=== PATIENT | male | born 1945 | race Caucasian/White ===

== ENCOUNTER → 2016-09-17 | Outpatient (CLI) | payer OTHER, MEDICARE ==
[2016-09-17 09:45] LABS: BILIRUBIN,TOTAL 0.9 mg/dL (0.3-1.2); BUN/CREATININE RATIO 27.14 (6-20); CALCIUM 9.5 mg/dL (8.7-10.7); CREATININE 0.7 mg/dL (0.70-1.50); LDL CHOLESTEROL,CALCULATED 86.2 mg/dL; POTASSIUM 3.8 meq/L (3.8-5.2)
== END ==
LOC: LAB 08:59
PROVIDERS: ATTEND Nurse Practitioner Family
DX: E78.2 Mixed hyperlipidemia (principal); I10 Essential (primary) hypertension; N40.0 Benign prostatic hyperplasia without lower urinary tract symptoms; Z12.5 Encounter for screening for malignant neoplasm of prostate
CPT/HCPCS: 36415; 80048; 82247; 82465; 82550; 82977; 83718; 84075; 84450; 84460; 84478; G0103

== ENCOUNTER → 2016-09-22 | Outpatient (CLI) | payer OTHER, MEDICARE | LOC: MMPC 11:11 | PROVIDERS: ATTEND Nurse Practitioner Family | DX: E78.5 Hyperlipidemia, unspecified (principal); I10 Essential (primary) hypertension; E03.9 Hypothyroidism, unspecified | CPT/HCPCS: 99214; G0463 ==

== ENCOUNTER → 2016-11-04 | Outpatient (CLI) | payer OTHER, MEDICARE ==
[2016-11-04 16:24] LABS: HEMOGLOBIN A1C 5.17 % (4.2-6.0); MEAN BLOOD GLUCOSE (CALC) 86.161 mg/dL
[2016-11-04 16:39] LABS: FREE T4 (FREE THYROXINE) 1.7 ng/dL (0.93-1.71)
[2016-11-07 10:11] LABS: A/G RATIO 0.91 (()); ALB PEP SER 3.8 g/dL (3.4-4.7); ALP1 GLOB 0.2 g/dL (0.1-0.3); ALP2 GLOB 0.9 g/dL (0.6-1.0); BETA GLOBS 1.1 g/dL (0.7-1.2); GAMMA GLOBS 1.9 g/dL (0.6-1.6); M SPIKE 1.1 g/dL (()); TOT PRT SERUM 7.9 g/dL (6.3 - 7.9)
[2016-11-07 10:43] LABS: IMPRESSION SEE COMMENTS (())
== END ==
LOC: MOB LAB 13:57
PROVIDERS: ATTEND Nurse Practitioner Family
DX: E03.9 Hypothyroidism, unspecified (principal); I10 Essential (primary) hypertension; G60.9 Hereditary and idiopathic neuropathy, unspecified; Z83.3 Family history of diabetes mellitus; Z79.899 Other long term (current) drug therapy
CPT/HCPCS: 36415; 82607; 82746; 83036; 84155; 84165; 84439; 84443; 85652; 86334

== ENCOUNTER → 2016-11-17 | Outpatient (CLI) | payer OTHER, MEDICARE ==
[2016-11-19 08:56] LABS: 24 HOUR URINE VOLUME 1875 mL (()); ALBUMIN 24PE 32 % (()); ALPHA1 GLOB 5 % (()); ALPHA2 GLOB 20 % (()); BETA GLOB URINE 33 % (()); COLLECTION DURATION 24 h (())
== END ==
LOC: LAB 09:37
PROVIDERS: ATTEND Nurse Practitioner Family
DX: D47.2 Monoclonal gammopathy (principal)
CPT/HCPCS: 84156; 84166

== ENCOUNTER → 2017-03-19 | Outpatient (CLI) | payer OTHER, MEDICARE ==
[2017-03-19 09:36] LABS: BUN/CREATININE RATIO 27.14 (6-20); CALCIUM 8.7 mg/dL (8.7-10.7); CHOL/HDL RATIO 6.21 RATIO (0-4.0); LDL CHOLESTEROL,CALCULATED 81.2 mg/dL
== END ==
LOC: LAB 08:51
PROVIDERS: ATTEND Nurse Practitioner Family
DX: E78.5 Hyperlipidemia, unspecified (principal); I10 Essential (primary) hypertension; E03.9 Hypothyroidism, unspecified
CPT/HCPCS: 36415; 80048; 82247; 82465; 82550; 82977; 83718; 84075; 84443; 84450; 84460; 84478

== ENCOUNTER → 2017-03-23 | Outpatient (CLI) | payer OTHER, MEDICARE | LOC: MMPC 09:00 | PROVIDERS: ATTEND Nurse Practitioner Family | DX: I10 Essential (primary) hypertension (principal); E78.5 Hyperlipidemia, unspecified; E03.9 Hypothyroidism, unspecified; R97.20 Elevated prostate specific antigen [PSA]; G60.9 Hereditary and idiopathic neuropathy, unspecified | CPT/HCPCS: 99214; G0463 ==

== ENCOUNTER 2018-05-10 10:22 | Inpatient (IN) ==
[~2018-05-10 10:22] MED LIST: BUPivacaine Liposome/PF (Exparel) Inj 20ml vial INFIL ONE; Ketorolac Inj 30 MG, Morphine Inj (Ortho Cocktail) 5 MG, BUPivacaine Inj 0.25% PF 150 MG SPLASH ONE; LIDOCAINE W/ SODIUM BICARB 0.5 ML SYR ONE; LIDOCAINE W/ SODIUM BICARB 0.5 ML SYR SUBD ONE; Lactated Ringers 1,000 ML PRIMARY IV ONE; Nasal Sanitizer POPSWAB ampule 3 AMP (Nozin) PREOP DOSE ENOS SCH; Sodium Chloride 0.9% 100 ML IV ONE; TRANEXAMIC ACID 1,000 MG / 10 ML VIAL ONE; Tranexamic Acid 1,000 MG in Sodium Chloride 0.9% 100 ML IV SCH; ceFAZolin Inj 2gm (Premix) 2 GM/50 ML BAG IV ONE
[2018-05-10 10:51] LABS: BILIRUBIN,URINE NEGATIVE (NEG); CLARITY,URINE CLEAR (CLEAR); COLOR,URINE YELLOW (Y); GLUCOSE, URINE (UA) NEGATIVE (NEG); OCCULT BLOOD,URINE MODERATE (NEG); PROTEIN,URINE NEGATIVE (NEG); UROBILINOGEN,URINE 0.2 EU/dL (0.2)
[2018-05-10] MEDS ORDERED: ceFAZolin Inj 2gm (Premix) 2 GM/50 ML BAG IV ONE (10:51)
[2018-05-10 10:57] LABS: URINE SAMPLE TYPE CLEAN CATCH URINE
[2018-05-10 10:58] LABS: BACTERIA,URINE RARE; SQUAMOUS EPITHELIAL CELL,UR RARE; WBC,URINE 0-1
[2018-05-10] MEDS: Lactated Ringers 1,000 ML PRIMARY IV SCH (11:21)
[2018-05-10] MEDS ORDERED: Sodium Chloride 0.9% 250 ML IV ONE (11:48)
[2018-05-10] MEDS ORDERED: Sodium Chloride 0.9% 0 ML ONE (11:48)
[2018-05-10] MEDS ORDERED: fentaNYL Inj 250 MCG/5 ML VIAL ONE (12:10)
[2018-05-10] MEDS ORDERED: MIDAZOLAM 5 MG/1 ML ONE (12:10)
[2018-05-10] MEDS ORDERED: LIDOCAINE 2%/ EPI 1:200,000 - 20 ML VIAL ONE (12:12)
[2018-05-10] MEDS ORDERED: BUPIVACAINE 0.5% W/ EPI - 10 ML VIAL ONE (12:12)
[2018-05-10] MEDS ORDERED: Sodium Chloride 0.9% vial 40 ML ONE (12:22)
[2018-05-10] MEDS ORDERED: BUPivacaine Liposome/PF (Exparel) Inj 20ml vial INFIL ONE (12:22)
--- NOTE | 2018-05-10 12:35 | CRNA.PROCE ---
Nerve Block Documentation - - Safety Measures: Time Out Taken, Site Verified - - Type of Nerve Block Used: Left Adductor Canal Nerve Block Position for Nerve Block: Supine Moniters Used During Block: EKG, SPO2, NIBP Oxygen Supplemented: Yes Sedation Used - Enter Amount in Comment Field [ANES.SEDAT]: Midazolam (mg): Yes (2mg iv), Fentanyl (mcg): Yes (50mcg iv) Skin Prep Used: ChloroPrep Technique: Ultrasound Nerve Block Needle Used: EchoBright 100 mm Local Anesthetic - Enter Amt in Comment Field [ANES.LOCNB]: 0.5 % Bupivicaine with Epinephrine 1:200,000 (mL): Yes (20ml), 2 % Xylocaine with Epinephrine 1: 200,000 (mL): Yes (20ml) - - PreOp Block : Time In: 12:20 PreOp Block : Time Out: 12:30 Anesthesia Time - Other Weight: 110.042 kg Height: 5 ft 8 in Body Mass Index (BMI): 36.8
[2018-05-10] MEDS ORDERED: PROPOFOL 10 MG/1 ML (200 MG/20 ML) VIAL IV ONE (12:57)
[2018-05-10] MEDS ORDERED: KETAMINE 100 MG/1 ML - 5 ML ONE (13:35)
[2018-05-10] MEDS ORDERED: Lactated Ringers 1,000 ML PRIMARY IV ONE ×3 (14:03→15:38)
--- NOTE | 2018-05-10 15:39 | OPS CRUTCH ---
Diagnosis : Left Total Knee Arthroplasty Referral Reason: IceMan Cold Therapy Unit O: The patient was issued an [facility]Man Cold Therapy Unit and instructed in its proper use and care. P: No further therapy is indicated at this time. MTDD
[2018-05-10] MEDS ORDERED: ONDANSETRON 4 MG/2 ML VIAL IVP PRN (17:26)
[2018-05-10] MEDS ORDERED: HYDROmorphone 2 MG/1 ML IVP PRN (17:26)
[2018-05-10] MEDS ORDERED: LIDOCAINE W/ SODIUM BICARB 0.5 ML SYR SUBD PRN (17:26)
[2018-05-10] MEDS ORDERED: fentaNYL Inj 100 MCG/2 ML VIAL IVP PRN (17:26)
--- NOTE | 2018-05-10 17:29 | CRNA.PROGR ---
Anesthesia Time - Procedure/Recovery Time Start Date: 05/10/18 End Date: 05/10/18 Anesthesia : Time In: 12:53 Anesthesia : Time Out: 17:15 Anesthesia : Total Time: 262 - Block Time PreOp Block : Time In: 12:20 PreOp Block : Time Out: 12:30 - Total Anesthesia Time Total Anesthesia Time (minutes): 262 - Other Weight: 110.042 kg Height: 5 ft 8 in Body Mass Index (BMI): 36.8 Physical Status: P2 Anesthesia Type: General Anesthesia : LMA
--- NOTE | 2018-05-10 17:29 | CRNA.PROGR ---
Anesthesia Recovery Phase I - Post Anesthesia Evaluation Patient's Condition on Arrival in Phase I: Stable Pain Level: 0
[2018-05-10] MEDS ORDERED: Lactated Ringers 1,000 ML PRIMARY IV SCH (17:30)
--- NOTE | 2018-05-10 18:06 | DI ---
LEFT KNEE, 05/10/2018 5:15 PM: Clinical History: Status post total knee replacement. Osteoarthritis. Previous Exam: 02/09/2018. AP and lateral views are submitted. The patient is status post total left knee replacement. The prost hetic joint articulates normally. A drain tube is in place. Reading: Status post total left knee replacement. The prosthetic joint articulates normally.
[2018-05-10] MEDS ORDERED: MAG HYDROX/AL HYDROX/SIMETH 30 ML SUSP PO PRN (18:20)
[2018-05-10] MEDS ORDERED: CALCIUM CARBONATE 500 MG (TUMS) CHEWABLE TABLET PO PRN (18:20)
[2018-05-10] MEDS ORDERED: Ondansetron ODT Tab 8 MG TAB PO PRN (18:20)
[2018-05-10] MEDS ORDERED: BISACODYL 10 MG SUPPOSITORY RECTAL PRN (18:20)
[2018-05-10] MEDS ORDERED: MORPHINE SULFATE 2 MG/1 ML IVP PRN (18:20)
[2018-05-10] MEDS ORDERED: Prochlorperazine Tab 10 MG TAB PO PRN (18:20)
[2018-05-10] MEDS ORDERED: BISACODYL 5 MG TABLET PO PRN (18:20)
[2018-05-10] MEDS ORDERED: diphenhydrAMINE 25 MG CAPSULE PO PRN (18:20)
[2018-05-10] MEDS ORDERED: ACETAMINOPHEN 325 MG TABLET PO PRN (18:20)
[2018-05-10] MEDS ORDERED: IBUPROFEN 400 MG TABLET PO PRN (18:20)
[2018-05-10] MEDS: oxyCODONE/APAP 7.5/325 Tab 1 TAB TAB PO PRN ×2 (19:17→23:20)
[2018-05-10] MEDS: D5-1/2NS + 20mEq KCL 1,000 ML PRIMARY IV SCH (19:17)
[2018-05-10] MEDS ORDERED: LISINOPRIL 20 MG TABLET PO SCH (21:00)
[2018-05-10] MEDS: Pravastatin Tab 40 MG TAB PO SCH (22:00)
[2018-05-10] MEDS: TAMSULOSIN 0.4 MG CAPSULE PO SCH (22:00)
[2018-05-10] MEDS: DOCUSATE 100 MG CAPSULE PO SCH (22:00)
[2018-05-10] MEDS: POTASSIUM CHLORIDE 20 MEQ TAB PO SCH (22:00)
[2018-05-10] MEDS: ceFAZolin Inj 2gm (Premix) 2 GM/50 ML BAG IV SCH (22:00)
--- NOTE | 2018-05-10 22:00 | PDOC ---
HPI - History of Present Illness Date of Service: 05/10/18 Time of Service: 21:55 Chief Complaint: Left knee pain History of Present Illness: This very pleasant 72-year-old male that has had left knee pain for some time. 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 He has bilateral knee pain, left greater than right, and opted for a left knee replacement with Dr. Fleming. That surgery was done today. Please see his surgical notes regarding the procedure. I was asked to assess and address his hypertension, hypothyroidism, benign prostatic hypertrophy and to advise on those medical issues. Postoperatively, the patient denies any chest pain, shortness breath, nausea or vomiting. He states that he is on some blood pressure medications, a thyroid pill, but has never had any heart attack or stroke history. He states his knee pain is well controlled postsurgery as well. The patient states that he will be doing a replacement on the right knee in the future. He states his only issue at this time is that he feels like he has some fullness in his bladder, and that he typically has symptoms of urinary urgency. He states that is much better on Flomax. Past Medical History Medical History: 1. Hypertension. 2. Hypothyroidism. 3. Benign prostatic hypertrophy, patient states that he had workup that showed negative workup for prostate cancer. 4. Bilateral knee osteoarthritis. 5. Hypercholesterolemia Surgical History: 1. Cholecystectomy. 2. Right knee cartilage surgery. 3. Colonoscopy with history of colon polyps. He follows Dr. Hernandez for this. Pertinent Family History: Brother had colon cancer and of complications of multiple sclerosis Past Social History: Does not smoke or drink alcohol. . Has one healthy daughter. Lives here in [place], [place]. Tobacco Use: Never Smoker In the Past 12 Months, Have Used or Abuse Any of the Following Substance: None Alcohol Use: None Medication / Allergies Home Medications: Home Medications 3 Medication Instructions Recorded Confirmed Type Cranberry Fruit Concentrate 1 cap PO QD cap 03/29/15 05/10/18 History [Cranberry] aspirin 81 mg tablet,delayed PO 09/24/17 05/06/18 History release amlodipine 5 mg tablet 5 mg PO QDAY #30 tab 01/21/18 05/10/18 Rx levothyroxine 137 mcg tablet 137 mcg PO DAILY #90 tab 01/21/18 05/10/18 Rx lisinopril 40 mg tablet 40 mg PO BID #180 tab 01/21/18 05/10/18 Rx gabapentin 300 mg capsule 300 mg PO TID #90 cap 03/12/18 05/10/18 Rx pravastatin 40 mg tablet 40 mg PO QHS #90 tab 04/05/18 05/10/18 Rx potassium chloride ER 20 mEq 20 meq PO BID #60 tab 05/07/18 05/10/18 Rx tablet,extended release Tamsulosin HCl 0.4 mg PO ONCE 05/10/18 05/10/18 History Allergies/Adverse Reactions: Allergies 3 Allergy/AdvReac Type Severity Reaction Status Date / Time No Known Allergies Allergy Unverified 04/27/18 09:34 Exam - Vitals Vital Signs: Vital Signs Temperature 97.6 F Temperature Source Temporal Artery Scan Pulse Rate [Pulse Oximeter] 78 Pulse Rate 68 Respiratory Rate 18 Blood Pressure [Right Arm] 123/73 Blood Pressure 137/65 Pulse Ox 95 Oxygen Flow Rate 2 Oxygen Delivery Method Nasal Cannula Height 5 ft 8 in Weight 242 lb - General General Appearance: No Acute Distress, Cooperative - Head Head Exam: Normal Inspection, Normocephalic, Atraumatic - Eye Eye Exam: POSITIVE: No Scleral Icterus - ENT ENT Exam: POSITIVE: Mucous Membranes Moist - Neck Neck Exam: Normal Inspection, No Tenderness, No Lymphadenopathy, No Thyromegaly , JVP is not Raised - Respiratory Respiratory Exam: POSITIVE: Clear to Auscultation - Bilaterally, Breathing Non Labored - Cardiovascular Cardiovascular Exam: POSITIVE: RRR, No Murmur, No Clicks, No Gallops, No Rubs, No JVD - GI/Abdominal GI/Abdominal Exam: POSITIVE: Normal Bowel Sounds, Non Tender, Non Distended, Soft - Rectal Rectal Exam: POSITIVE: Deferred - External Exam: POSITIVE: Deferred Exam: POSITIVE: Deferred - Extremities Extremities Exam: POSITIVE: No Clubbing Present, No Edema Present, No Cyanosis Present Additional Extremities Exam Details: Left knee is currently bandaged, dressed, and dressing appears clean and dry and intact - Neurological Neurological Exam: POSITIVE: Alert, Oriented x 3, No Facial Droop, Speech Intact / Clear - Psychiatric Psychiatric Exam: POSITIVE: Normal Affect, Normal Mood Results - Labs CBC and BMP: 05/10/18 11:21 Additional Lab Results: 12/13/12 04/26/18 04/26/18 08:22 09:03 09:03 WBC 5.45 Hgb 16.1 RDW 13.9 Plt Count 209 PT 10.9 INR 1.06 Sodium Potassium Chloride Carbon Dioxide Anion Gap BUN Creatinine BUN/Creatinine Ratio Glucose Calculated Osmolality AST ALT Alkaline Phosphatase Total Protein Albumin Globulin Albumin/Globulin Ratio Urine Occult Blood 04/26/18 05/10/18 05/10/18 09:03 10:43 11:21 WBC Hgb RDW Plt Count PT INR Sodium 138 Potassium 4.1 Chloride 104 Carbon Dioxide 27 Anion Gap 7 BUN 21 Creatinine 0.7 BUN/Creatinine Ratio 30.00 H Glucose 102 Calculated Osmolality 288.0 AST 21 ALT 39 Alkaline Phosphatase 64 Total Protein 7.9 Albumin 4.1 Globulin 3.8 Albumin/Globulin Ratio 1.00 L Urine Occult Blood Moderate H - EKG Data -: EKG Interpreted by Me (From 04/26/2018) Rate: Normal EKG Shows Normal: Sinus Rhythm - EKG Data EKG Interpretation: Normal EKG - Imaging Status: Report Reviewed by Me (The postoperative knee x-ray shows postoperative changes of knee replacement with knee replacement joint articulating correctly.) Assessment and Plan - Patient Problems (1) Essential hypertension Current Visit: Yes Status: Acute (2) Hypothyroidism Current Visit: Yes Status: Acute Code(s): E03.9 - Hypothyroidism, unspecified (3) Hyperlipidemia Current Visit: Yes Status: Chronic Qualifiers: Hyperlipidemia type: mixed hyperlipidemia Qualified Code(s): E78.2 - Mixed hyperlipidemia (4) Osteoarthritis of knees, bilateral Current Visit: Yes Status: Acute Code(s): M17.0 - Bilateral primary osteoarthritis of knee Qualifiers: Osteoarthritis type: primary Qualified Code(s): M17.0 - Bilateral primary osteoarthritis of knee (5) Status post left knee replacement Current Visit: Yes Status: Acute Code(s): Z96.652 - Presence of left artificial knee joint (6) Benign prostatic hyperplasia Current Visit: No Status: None Qualifiers: Lower urinary tract symptom presence: symptoms present Lower urinary tract symptom detail: urinary frequency Qualified Code(s): N40.1 - Benign prostatic hyperplasia with lower urinary tract symptoms; R35.0 - Frequency of micturition - Assessment / Plan Additional Assessment/Plan Details: I would recommend resuming Synthroid, antihypertensive agents including amlodipine, but hold off on SHANTAL inhibitor of lisinopril due to associations with perioperative hypotension and renal insufficiency. I will take the liberty of discontinuing that medication now. We can resume that down the road if blood pressure stabilized and become more hypertensive during the hospital stay. Go ahead and continue D5 half normal with potassium for now, and if patient is doing much better from fluid balance standpoint tomorrow, I think we can saline lock the IV tomorrow. In terms of the catheter, he is having a little bit of pressure from that, so we 'll try to insert of the little further, make sure it's not taper lock, and use Urojet to try and relieve any discomfort or pain. He will continue on his Flomax for his benign prostatic hypertrophy. Labs in a.m. DVT prophylaxis for 10-14 days postoperatively would be recommended with either Lovenox or Xarelto.. PT and OT as per orthopedics. Take for this consult. It'll be the hospitalist services pleasure to continue to advise on these medical issues throughout the hospital stay.
[2018-05-11] MEDS: Lactated Ringers 1,000 ML PRIMARY IV SCH (00:24)
[2018-05-11] MEDS: oxyCODONE/APAP 7.5/325 Tab 1 TAB TAB PO PRN ×5 (03:11→20:25)
[2018-05-11] MEDS: D5-1/2NS + 20mEq KCL 1,000 ML PRIMARY IV SCH ×2 (04:04→15:51)
[2018-05-11] MEDS: ceFAZolin Inj 2gm (Premix) 2 GM/50 ML BAG IV SCH (05:00)
[2018-05-11 05:01] LABS: Hemoglobin [HGB] 14.2 g/dL (14.0-18.0); MEAN CORPUSCULAR HEMOGLOBIN 29.2 PG (27-31); MEAN CORPUSCULAR VOLUME 88.3 FL (80-90); RED BLOOD COUNT 4.87 10^6/uL (4.70-6.10)
[2018-05-11 05:11] LABS: BLOOD UREA NITROGEN 20 mg/dL (7-22)
[2018-05-11] MEDS ORDERED: MORPHINE SULFATE 10 MG/1 ML IVP ONE (08:52)
[2018-05-11] MEDS ORDERED: ENOXAPARIN SODIUM 40 MG/0.4 ML SYRINGE SUBCUT SCH (09:00)
[2018-05-11] MEDS: DOCUSATE 100 MG CAPSULE PO SCH ×2 (09:21→20:26)
[2018-05-11] MEDS: POTASSIUM CHLORIDE 20 MEQ TAB PO SCH ×2 (09:21→20:24)
[2018-05-11] MEDS: LEVOTHYROXINE 137 MCG TABLET PO SCH (09:22)
[2018-05-11] MEDS: AmLODIPine Tab 5 MG TABLET PO SCH (09:22)
[2018-05-11] MEDS: Rivaroxaban Tab 10 MG TAB PO SCH (09:22)
[2018-05-11] MEDS: GABAPENTIN 300 MG CAPSULE PO SCH ×3 (09:22→20:25)
--- NOTE | 2018-05-11 09:30 | ORTHO.PROG ---
Last Taken Vital Signs: Vital Signs - Last Taken Temperature 97.8 F 05/11/18 06:45 Pulse Rate 60 05/11/18 07:00 Respiratory Rate 18 05/11/18 07:00 Blood Pressure 137/68 05/11/18 06:45 Pulse Ox 94 05/11/18 06:45 Subjective: Patient had just been transferred to chair. Rates his pain 7 out of 10. Was only about 5 through the night. Did not sleep very well. Objective: Vital signs stable patient afebrile. Hemoglobin 14 proximally 300+ cc of blood out of his drain. Left knee incision clean with mild drainage. Not much effusion in the knee. Slight contracture to the knee. The femoral block seems to have worn off. He has normal sensation on the anterior thigh. Postoperative x-rays show satisfactory position of the prosthesis. Assessment: Impression doing fairly postop day 1 from left total knee. Plan: Plan: Is to DC his drain Hemovac which I did. We'll get his Redmond catheter out later today. We'll start him on Xarelto 10 mg daily. DC the order for the ibuprofen and the Lovenox. CPM was ordered. We will initiate that. I applied RACHEL hose to his leg. We'll get going in physical therapy today. will alternate percocet with the morphine.
[2018-05-11] MEDS: ONDANSETRON 4 MG/2 ML VIAL IVP PRN (09:33)
--- NOTE | 2018-05-11 12:50 | PTI REPORT ---
Thank you for the referral of Teodoro Mckeon. He was seen on 05/11/18 for an inpatient evaluation status post total knee arthroplasty. SUBJECTIVE: The patient is a 72-year-old male who underwent a total knee procedure yesterday. He was seen this morning in his room. PAST MEDICAL HISTORY: Past medical history can be found in the patient's medical record. OBJECTIVE FINDINGS: Pain: The patient rates his pain at a 7/10 on the verbal analog scale. Bed mobility: The patient required minimal assist of one to come from supine to sit. He was having quite a bit of discomfort and pain down the lateral side of his leg. Transfers: The patient required assist of one to transfer from sit to stand with use of a walker. Ambulation: The patient ambulated approximately 6-7 steps and got into a autumn chair. Range of motion: The patient demonstrated range of motion to approximately 80 degrees of knee flexion. ASSESSMENT: Problem List: Pain in the affected knee Decreased passive and active range of motion in the affected knee Decreased strength in the affected knee Short-Term Goals: To be met by discharge from inpatient: Patient will be able to transfer from bed to stand independently. Patient will be able to ambulate 100 feet with walker, weight-bearing as tolerated Patient will be able to ascend and descend five stairs with walker, weight- bearing as tolerated. Long-Term Goals: To be met following discharge from inpatient: Patient will be seen by outpatient therapy. TREATMENT PLAN: Patient will be seen B.I.D during the week and one time per day over the weekend as an inpatient for transfers, ambulatory activities, range of motion, and the start of his total knee rehab. INITIAL TREATMENT: Treatment today consisted of the initial evaluation activities. The patient transferred to the autumn chair and was issued a cryocuff for his knee. There is a CPM in his room; we are awaiting written orders. BEN
--- NOTE | 2018-05-11 16:19 | PT.PROG ---
Progress Note Progress Note: S. Patient stated that he is still in a lot of pain this afternoon, however agreed to go for a walk. O. Patient transferred from seated to standing then ambulated 70 feet in the bryan and back to his bed where he was fitted for the CPM and was left in CPM with call light. A. Patient tolerated ambulation well this afternoon, he was unable to tolerate 70 degrees of flexion on the CPM, however was able to tolerate 65 degrees at this time. Patient would continue to benefit from skilled therapy to increase strength and mobility at this time. P. Continue POC.
--- NOTE | 2018-05-11 16:20 | PDOC(PROG) ---
Date of Service: 05/11/18 Time of Service: 16:15 Interval History: No completes of chest pain, shortness of breath, or current nausea and vomiting. Had some nausea and vomiting with morphine earlier today but that seems to have resolved at this point. I spoke with his RN. Noted change and DVT prophylaxis agent, but Xarelto is a good choice as well. I would recommend an additional 9-13 days from here. Doing well with therapy. Objective : Data - Labs CBC and BMP: 05/11/18 04:05 05/11/18 04:05 Objective : Exam - General General Appearance: No Acute Distress, Cooperative Additional General Exam Details: Vital Signs - Last Taken Temperature 98 F 05/11/18 11:08 Pulse Rate 74 05/11/18 11:08 Respiratory Rate 18 05/11/18 11:08 Blood Pressure 150/73 05/11/18 11:08 Pulse Ox 90 05/11/18 11:08 - Head Head Exam: Normal Inspection, Normocephalic - ENT ENT Exam: Mucous Membranes Moist - Respiratory Respiratory Exam: Clear to Auscultation - Bilaterally, Breathing Non Labored Additional Respiratory Exam Details: Did very well with incentive spirometry while I was examining the patient at bedside. - Cardiovascular Cardiovascular Exam: RRR, No Murmur, No Clicks, No Gallops, No Rubs, No JVD - GI/Abdominal GI/Abdominal Exam: Normal Bowel Sounds, Non Tender, Non Distended, Soft - Extremities Extremities Exam: No Clubbing Present, No Edema Present, No Cyanosis Present Additional Extremities Exam Details: Right knee is dressed. Dressing is clean, dry, intact. - Neurological Neurological Exam: Alert, Oriented x 3, No Facial Droop, Speech Intact / Clear Assessment and Plan - Patient Problems (1) Essential hypertension Current Visit: Yes Status: Acute (2) Hypothyroidism Current Visit: Yes Status: Acute Code(s): E03.9 - Hypothyroidism, unspecified Qualifiers: Hypothyroidism type: unspecified Qualified Code(s): E03.9 - Hypothyroidism , unspecified (3) Hyperlipidemia Current Visit: Yes Status: Chronic Qualifiers: Hyperlipidemia type: mixed hyperlipidemia Qualified Code(s): E78.2 - Mixed hyperlipidemia (4) Osteoarthritis of knees, bilateral Current Visit: Yes Status: Acute Code(s): M17.0 - Bilateral primary osteoarthritis of knee Qualifiers: Osteoarthritis type: primary Qualified Code(s): M17.0 - Bilateral primary osteoarthritis of knee (5) Benign prostatic hyperplasia Current Visit: No Status: None Qualifiers: Lower urinary tract symptom presence: symptoms present Lower urinary tract symptom detail: urinary frequency Qualified Code(s): N40.1 - Benign prostatic hyperplasia with lower urinary tract symptoms; R35.0 - Frequency of micturition (6) Status post left knee replacement Current Visit: Yes Status: Acute Code(s): Z96.652 - Presence of left artificial knee joint - Assessment / Plan Additional Assessment/Plan Details: Patient is doing well thus far postoperatively with physical therapy and occupational therapy, continue that. DVT prophylaxis with Xarelto is very reasonable. I would agree with that. Pain control as per orthopedics. No adjustments to antihypertensive therapy today. Blood pressures noted. No change to the thyroid medications or to cholesterol medications at this point.
[2018-05-11] MEDS ORDERED: Prochlorperazine Edisylate Inj 10mg/2ml vial IVP PRN (18:38)
[2018-05-11] MEDS: TAMSULOSIN 0.4 MG CAPSULE PO SCH (20:25)
[2018-05-11] MEDS: Pravastatin Tab 40 MG TAB PO SCH (20:26)
[2018-05-12] MEDS: oxyCODONE/APAP 7.5/325 Tab 1 TAB TAB PO PRN ×6 (00:54→23:44)
[2018-05-12 04:30] LABS: Hematocrit [HCT] 42.4 % (42.0-52.0); MEAN CORPUSCULAR HEMOGLOBIN 29.7 PG (27-31); MEAN CORPUSCULAR VOLUME 89.8 FL (80-90); MEAN PLATELET VOLUME 9.6 FL (7.4-12.2); RED BLOOD COUNT 4.72 10^6/uL (4.70-6.10)
[2018-05-12 04:43] LABS: BLOOD UREA NITROGEN 20 mg/dL (7-22)
--- NOTE | 2018-05-12 08:32 | ORTHO.PROG ---
Last Taken Vital Signs: Vital Signs - Last Taken Temperature 99.4 F 05/12/18 07:25 Pulse Rate 100 05/12/18 07:25 Respiratory Rate 22 05/12/18 07:25 Blood Pressure 160/62 05/12/18 07:25 Pulse Ox 95 05/12/18 07:25 Subjective: Patient looks better today. Fairly sleepy through the night but he did not sleep at all the night before. Little bit of nausea yesterday evening. States his pain is well-controlled with Percocet only. Did fairly well in therapy yesterday. Objective: Vital signs stable, temperature 99. Left knee incision clean and dry. Minimal swelling. Knee seems more extended and yesterday. Hemoglobin 14 Assessment: Impression: Doing quite well postop day 2 from left total knee. Plan: Lang: Is to continue physical therapy. The Percocet alone seems to be working. Possible discharge tomorrow depending on his progress.
[2018-05-12] MEDS: GABAPENTIN 300 MG CAPSULE PO SCH ×2 (09:23→20:02)
[2018-05-12] MEDS: LEVOTHYROXINE 137 MCG TABLET PO SCH (09:23)
[2018-05-12] MEDS: POTASSIUM CHLORIDE 20 MEQ TAB PO SCH ×2 (09:23→20:02)
[2018-05-12] MEDS: DOCUSATE 100 MG CAPSULE PO SCH ×2 (09:23→20:03)
[2018-05-12] MEDS: AmLODIPine Tab 5 MG TABLET PO SCH (09:24)
[2018-05-12] MEDS: Rivaroxaban Tab 10 MG TAB PO SCH (09:24)
--- NOTE | 2018-05-12 15:22 | PDOC(PROG) ---
Date of Service: 05/12/18 Time of Service: 15:16 Interval History: no chest pain, no shortness of breath. no nausea or vomiting today. had vomiting yesterday, but resolved now. knee pain controlled and therapy went well. Objective : Data - Labs CBC and BMP: 05/12/18 04:15 05/12/18 04:15 Objective : Exam - General General Appearance: No Acute Distress, Cooperative Additional General Exam Details: Vital Signs - Last Taken Temperature 97.9 F 05/12/18 11:47 Pulse Rate 86 05/12/18 11:47 Respiratory Rate 20 05/12/18 11:47 Blood Pressure 110/54 05/12/18 11:47 Pulse Ox 85 05/12/18 11:47 - Eye Eye Exam: No Scleral Icterus - ENT ENT Exam: Mucous Membranes Moist - Respiratory Respiratory Exam: Clear to Auscultation - Bilaterally, Breathing Non Labored - Cardiovascular Cardiovascular Exam: RRR, No Murmur, No Clicks, No Gallops, No Rubs, No JVD - GI/Abdominal GI/Abdominal Exam: Normal Bowel Sounds, Non Tender, Non Distended, Soft - Extremities Extremities Exam: No Clubbing Present, No Edema Present, No Cyanosis Present Additional Extremities Exam Details: left knee dressed, clean and dry dressing. - Neurological Neurological Exam: Alert, Oriented x 3, No Facial Droop, Speech Intact / Clear Assessment and Plan - Patient Problems (1) Essential hypertension Current Visit: Yes Status: Acute (2) Hypothyroidism Current Visit: Yes Status: Acute Code(s): E03.9 - Hypothyroidism, unspecified Qualifiers: Hypothyroidism type: unspecified Qualified Code(s): E03.9 - Hypothyroidism , unspecified (3) Hyperlipidemia Current Visit: Yes Status: Chronic Qualifiers: Hyperlipidemia type: mixed hyperlipidemia Qualified Code(s): E78.2 - Mixed hyperlipidemia (4) Osteoarthritis of knees, bilateral Current Visit: Yes Status: Acute Code(s): M17.0 - Bilateral primary osteoarthritis of knee Qualifiers: Osteoarthritis type: primary Qualified Code(s): M17.0 - Bilateral primary osteoarthritis of knee (5) Benign prostatic hyperplasia Current Visit: No Status: None Qualifiers: Lower urinary tract symptom presence: symptoms present Lower urinary tract symptom detail: urinary frequency Qualified Code(s): N40.1 - Benign prostatic hyperplasia with lower urinary tract symptoms; R35.0 - Frequency of micturition (6) Status post left knee replacement Current Visit: Yes Status: Acute Code(s): Z96.652 - Presence of left artificial knee joint - Assessment / Plan Additional Assessment/Plan Details: blood pressured noted, fairly well controlled, no changes to meds continue thyroid replacement. PT and OT continue DVT prophylaxis would be good to discharge from my perspective when cleared from ortho. noted to be hypoxic at night, probably has sleep apnea. suspects that. outpatient follow up arranged and primary provider can order sleep study.
--- NOTE | 2018-05-12 15:36 | OTI REPORT ---
Thank you for the referral of Teodoro Mckeon. He was seen on 05/12/18 for an occupational therapy inpatient evaluation status post left total knee arthroplasty. SUBJECTIVE: The patient is a 72-year-old male. He reports that he lives in a one level home with his and has one stair to get into the home. Prior to admission, the patient was having a little bit of trouble with his socks as both knees are bad. The patient will need to have his right knee replaced sometime later this year. Prior to admission the patient was getting in and out of and around his home decently. Nursing reports that the patient has had some oxygen difficulties and that his oxygen levels were dropping into the 60s when sleeping last night. The patient reports that he has a shower chair as well as a higher toilet in his bathroom. PAST MEDICAL HISTORY: Past medical history can be found in the patient's medical record. OBJECTIVE FINDINGS: General observations: The patient was on 4 liters of oxygen when the therapist arrived. We were able to get him down to 2 liters with oxygen saturation levels staying above 90% throughout the session today. Activities of daily living: The patient was able to use the splash line operator to don and doff his socks as well as the sock aide to don his socks. The patient was issued a shoe horn a splash line operator and a sock aide. ASSESSMENT: The patient would benefit from at least one more skilled session to go over ADLs and functional abilities with use of adaptive devices. The patient did need some safety cues with use of the walker. The patient tends to get a little bit ahead of himself and rushes through the ambulation. We did tell him to take more time, to walk into the walker, and to move the walker first before ambulating into the walker. There were some balance concerns today with this patient. Short-Term Goals: To be met by discharge from inpatient: Patient will be able to dress self with modified independence. Patient will be able to complete all functional transfers independently. Patient will be able to complete toileting and showering activities independently. Long-Term Goals: To be met following discharge from inpatient: Patient will be discharged to home demonstrating independence and safety with all functional transfers and ADLs. TREATMENT PLAN: Patient will be seen B.I.D during the week and one time per day over the weekend as an inpatient to address the above goals and objectives. INITIAL TREATMENT: Treatment today consisted of the initial evaluation activities only. BEN
--- NOTE | 2018-05-12 16:32 | PT.PROG ---
Progress Note Progress Note: S. Patient stated that he is having a lot of pain this morning, he agreed to go to the therapy gym however. O. Patient was wheeled to the therapy gym where he performed, heel slides, quad , sets, ankle pumps and short arc quads, sit to stands all x 10, Patient then ambulated 80 feet to the wheelchair and was returned to his room where he was left in his chair with alarm and call light. A. Patient tolerated therapy fair this morning, he continues to struggle with pain and continues to lack full extension at this time. P. Continue POC.
--- NOTE | 2018-05-12 16:49 | PT.PROG ---
Progress Note Progress Note: S.Patient stated that he is having a lot of pain this afternoon. O. Patient was wheeled to the therapy gym where he performed, heel slides, quad , sets, ankle pumps and short arc quads, seated long arc quads, marches, knee flexion (3x30 seconds) sit to stands all x 10, Patient then ambulated 80 feet to the wheelchair and was returned to his room where he was left in his chair with alarm and call light. A. Patient tolerated therapy fair this afternoon, he continues to struggle with pain and continues to lack full extension at this time he was able to achieve 75 degrees of flexion. P. Continue POC.
[2018-05-12] MEDS: TAMSULOSIN 0.4 MG CAPSULE PO SCH (20:02)
[2018-05-12] MEDS: Pravastatin Tab 40 MG TAB PO SCH (20:02)
[2018-05-13] MEDS: oxyCODONE/APAP 7.5/325 Tab 1 TAB TAB PO PRN ×5 (04:10→21:58)
[2018-05-13] MEDS: LEVOTHYROXINE 137 MCG TABLET PO SCH (08:47)
[2018-05-13] MEDS: DOCUSATE 100 MG CAPSULE PO SCH ×2 (08:47→21:58)
[2018-05-13] MEDS: Rivaroxaban Tab 10 MG TAB PO SCH (08:47)
[2018-05-13] MEDS: POTASSIUM CHLORIDE 20 MEQ TAB PO SCH ×2 (08:47→21:58)
[2018-05-13] MEDS: AmLODIPine Tab 5 MG TABLET PO SCH (08:47)
[2018-05-13] MEDS: GABAPENTIN 300 MG CAPSULE PO SCH ×2 (11:01→21:57)
--- NOTE | 2018-05-13 12:00 | PT.PROG ---
Progress Note Progress Note: S. Patient stated that he is feeling better this morning compared to yesterday. O. Patient ambulated 50 feet to the wheelchair and was wheeled to the therapy gym with standard walker. Patient then had heat to the back of his knee and performed, heel slides, quad sets, ankle pumps, short arc quads, seated marches , flexion (2x30 second holds) then performed sit to stands x 10 and ambulated 80 feet back to the wheelchair and was returned to his room where he was left with alarm and call light. A. Patient was able to tolerate therapy well this morning, he continues to struggle with pain however was able to achieve 80 degrees of flexion and 7 degrees of extension, Patient would continue to benefit from skilled therapy to increase strength, mobility, safety and endurance at this time. P. Continue POC
--- NOTE | 2018-05-13 13:44 | OT.PROG ---
Progress Note Progress Note: S: pt stated he was having difficulties lifting his surgical leg today. O: tx consisted of functional ambulation x15 with stander walker and CGA for safety, toileting task independently, education and demonstration of use of sock aide and boy's adviser where pt performed LE dressing independently with 2 VCs for equipment placement. pt needed MAX A to tie shoe laces. A: pt was able to dress self and compete ADL tasks independently. pt is d/c from OT services due to reaching all OT goals. P: d/c from OT services
--- NOTE | 2018-05-13 17:18 | PT.PROG ---
Progress Note Progress Note: S. Patient stated that he is feeling good this afternoon, he reports he still has some soreness however feeling better. O. Patient ambulated 175 feet to the wheelchair and was wheeled to the therapy gym with standard walker. Patient then had heat to the back of his knee and performed, heel slides, quad sets, ankle pumps, short arc quads, seated marches , flexion (2x30 second holds) then performed sit to stands x 10 and ambulated 80 feet back to the wheelchair and was returned to his room where he was left with alarm and call light. A. Patient was able to tolerate therapy well this afternoon, he continues to struggle with pain however was able to achieve 85 degrees of flexion and 7 degrees of extension, Patient would continue to benefit from skilled therapy to increase strength, mobility, safety and endurance at this time. P. Continue POC
--- NOTE | 2018-05-13 17:21 | ORTHO.PROG ---
Last Taken Vital Signs: Vital Signs - Last Taken Temperature 98 F 05/13/18 17:00 Pulse Rate 65 05/13/18 17:00 Respiratory Rate 20 05/13/18 17:00 Blood Pressure 120/63 05/13/18 17:00 Pulse Ox 97 05/13/18 17:00 Subjective: Saw the patient this morning just before breakfast. He was looking good. Pain is well-controlled on one Percocet every 4 hours. Got a little behind yesterday. Having less nausea. Objective: Vital signs are stable patient afebrile. Left knee incision clean and dry. Normal swelling. I was able to flex his knee to about 85 degrees. Assessment: Impression: Doing well postop day 3 from left total knee. Plan: Plan is to do both therapy sessions today. Probably let him go home in the morning.
[2018-05-13] MEDS ORDERED: Fleet Enema w/Mineral Oil 133ml RECTAL PRN (19:24)
--- NOTE | 2018-05-13 19:35 | PDOC(PROG) ---
Date of Service: 05/13/18 Time of Service: 19:26 Interval History: complains of not having a bowel movement. no chest pain, no shortness of breath. no nausea or vomiting. knee pain controlled. Objective : Data - Labs CBC and BMP: 05/12/18 04:15 05/12/18 04:15 Objective : Exam - General General Appearance: No Acute Distress, Cooperative Additional General Exam Details: Vital Signs - Last Taken Temperature 98 F 05/13/18 17:00 Pulse Rate 65 05/13/18 17:00 Respiratory Rate 20 05/13/18 17:00 Blood Pressure 120/63 05/13/18 17:00 Pulse Ox 97 05/13/18 17:00 - Eye Eye Exam: No Scleral Icterus - ENT ENT Exam: Mucous Membranes Moist - Respiratory Respiratory Exam: Clear to Auscultation - Bilaterally, Breathing Non Labored - Cardiovascular Cardiovascular Exam: RRR, No Murmur, No Clicks, No Gallops, No Rubs, No JVD - GI/Abdominal GI/Abdominal Exam: Normal Bowel Sounds, Non Tender, Non Distended, Soft - Extremities Extremities Exam: No Clubbing Present, No Edema Present, No Cyanosis Present Additional Extremities Exam Details: left knee with dressing applied. dry dressing - Neurological Neurological Exam: Alert, Oriented x 3, No Facial Droop, Speech Intact / Clear Assessment and Plan - Patient Problems (1) Essential hypertension Current Visit: Yes Status: Acute (2) Hypothyroidism Current Visit: Yes Status: Acute Code(s): E03.9 - Hypothyroidism, unspecified Qualifiers: Hypothyroidism type: unspecified Qualified Code(s): E03.9 - Hypothyroidism , unspecified (3) Hyperlipidemia Current Visit: Yes Status: Chronic Qualifiers: Hyperlipidemia type: mixed hyperlipidemia Qualified Code(s): E78.2 - Mixed hyperlipidemia (4) Osteoarthritis of knees, bilateral Current Visit: Yes Status: Acute Code(s): M17.0 - Bilateral primary osteoarthritis of knee Qualifiers: Osteoarthritis type: primary Qualified Code(s): M17.0 - Bilateral primary osteoarthritis of knee (5) Benign prostatic hyperplasia Current Visit: No Status: None Qualifiers: Lower urinary tract symptom presence: symptoms present Lower urinary tract symptom detail: urinary frequency Qualified Code(s): N40.1 - Benign prostatic hyperplasia with lower urinary tract symptoms; R35.0 - Frequency of micturition (6) Status post left knee replacement Current Visit: Yes Status: Acute Code(s): Z96.652 - Presence of left artificial knee joint - Assessment / Plan Additional Assessment/Plan Details: we talked about using an enema, but patient wants to see if constipation meds work overnight no change to antihypertensive therapy from a medical stand point, when cleawred by ortho, okay to discharge. Primary care follow up arranged.
[2018-05-13] MEDS: TAMSULOSIN 0.4 MG CAPSULE PO SCH (21:58)
[2018-05-13] MEDS: Pravastatin Tab 40 MG TAB PO SCH (21:58)
[2018-05-13] MEDS ORDERED: MAGNESIUM CITRATE 296 ML SOLUTION PO ONE (22:37)
[2018-05-14] MEDS: oxyCODONE/APAP 7.5/325 Tab 1 TAB TAB PO PRN ×2 (01:54→08:14)
[2018-05-14] MEDS: ONDANSETRON 4 MG/2 ML VIAL IVP PRN (03:08)
[2018-05-14 07:45] VITALS: BP 123/74; RESP 16; TEMP 97; O2SAT 94
[2018-05-14] MEDS: DOCUSATE 100 MG CAPSULE PO SCH (08:15)
[2018-05-14] MEDS: AmLODIPine Tab 5 MG TABLET PO SCH (08:15)
[2018-05-14] MEDS: POTASSIUM CHLORIDE 20 MEQ TAB PO SCH (08:15)
[2018-05-14] MEDS: LEVOTHYROXINE 137 MCG TABLET PO SCH (08:15)
[2018-05-14] MEDS: Rivaroxaban Tab 10 MG TAB PO SCH (08:16)
[2018-05-14] MEDS: GABAPENTIN 300 MG CAPSULE PO SCH (08:16)
--- NOTE | 2018-05-14 08:20 | ORTHO.PROG ---
Last Taken Vital Signs: Vital Signs - Last Taken Temperature 97 F 05/14/18 07:44 Pulse Rate 80 05/14/18 07:44 Respiratory Rate 16 05/14/18 07:44 Blood Pressure 123/74 05/14/18 07:44 Pulse Ox 94 05/14/18 07:44 Subjective: Patient sitting up eating breakfast. Not complaining of much pain. Only took 5 pain pills yesterday. Bent his knee to about 85 yesterday. Objective: Vital signs stable patient afebrile. Left knee with minimal effusion Able to slide her leg back and forth. I will check his motion after he finishes his breakfast. Assessment: Impression: Doing well postop day 4 from left total knee. Plan: Plan: Is to discharge him this morning. He'll begin outpatient therapy on Thursday. He will be sent home with a CPM machine. Also stable with Percocet and also Xarelto for an additional week.
--- NOTE | 2018-05-14 11:41 | PT.PROG ---
Progress Note Progress Note: S. Patient stated that he is feeling better today, he reports he feels that he is ready to go home. O. Patient ambulated 175 feet to the therapy gym where he had heat to the back of his knee then performed heel slides, quad sets, ankle pumps, short arc quads , straight leg raises, seated marches, long arc quads, heel toe raises sit to stands all x 10, patient used the nu-step x 10 minutes then was stretched and ascended and descended 2 stairs and ambulated 175 feet back to his room where he was left in his chair with alarm and call light. A. Patient tolerated therapy well this morning, he was able to complete all exercises with no increase in pain or problems. Patient would benefit from outpatient therapy at this time. Patient has met all therapy goals at this time. P. Patient is cleared from therapy at this time.
== END 2018-05-14 12:21 | disposition home or self-care (01) | DRG 470 ==
LOC: OPS 10:22 → MED/SURG 17:45
PROVIDERS: ADMIT Orthopaedic Surgery; ATTEND Orthopaedic Surgery

== ENCOUNTER 2018-08-17 08:00 | Inpatient (IN) ==
[2018-09-07] MEDS ORDERED: LIDOCAINE W/ SODIUM BICARB 0.5 ML SYR SUBD PRN ×2 (06:00→14:25)
[2018-09-07] MEDS ORDERED: ceFAZolin Inj 2gm (Premix) 2 GM/50 ML BAG IV ONE ×2 (06:00→08:56)
[2018-09-07] MEDS ORDERED: Ketorolac Inj 30 MG, Morphine Inj (Ortho Cocktail) 5 MG, BUPivacaine Inj 0.25% PF 150 MG SPLASH ONE ×3 (06:00)
[2018-09-07] MEDS ORDERED: Nasal Sanitizer POPSWAB ampule 3 AMP (Nozin) PREOP DOSE ENOS SCH (06:00)
[2018-09-07] MEDS ORDERED: Tranexamic Acid 1,000 MG in Sodium Chloride 0.9% 100 ML IV SCH (06:00)
[2018-09-07] MEDS ORDERED: BUPivacaine Liposome/PF (Exparel) Inj 20ml vial INFIL ONE ×2 (06:00→11:06)
[2018-09-07] MEDS ORDERED: LIDOCAINE W/ SODIUM BICARB 0.5 ML SYR ONE (08:56)
[2018-09-07] MEDS ORDERED: Lactated Ringers 1,000 ML PRIMARY IV ONE ×4 (08:56→17:42)
[2018-09-07 09:21] LABS: BILIRUBIN,URINE NEGATIVE (NEG); CLARITY,URINE CLEAR (CLEAR); COLOR,URINE YELLOW (Y); GLUCOSE, URINE (UA) NEGATIVE (NEG); OCCULT BLOOD,URINE SMALL (NEG); PROTEIN,URINE NEGATIVE (NEG); UROBILINOGEN,URINE 0.2 EU/dL (0.2)
[2018-09-07 09:31] LABS: RBC,URINE RARE /hpf; RENAL EPITHELIAL CELLS,URINE RARE; SQUAMOUS EPITHELIAL CELL,UR MODERATE; URINE SAMPLE TYPE CLEAN CATCH URINE; WBC,URINE RARE
[2018-09-07 09:32] LABS: BACTERIA,URINE MANY; URINE CASTS RARE
[2018-09-07] MEDS: Lactated Ringers 1,000 ML PRIMARY IV SCH ×3 (09:45→17:39)
[2018-09-07] MEDS ORDERED: MIDAZOLAM 5 MG/1 ML ONE (10:24)
[2018-09-07] MEDS ORDERED: fentaNYL Inj 250 MCG/5 ML VIAL ONE ×2 (10:24→11:50)
[2018-09-07] MEDS ORDERED: BUPIVACAINE 0.5% W/EPI MPF -30 ML VIAL IV ONE (10:25)
[2018-09-07] MEDS ORDERED: DEXAMETHASONE PF 10 MG/1 ML VIAL ONE ×2 (10:25→13:56)
[2018-09-07] MEDS ORDERED: Mepivacaine Inj 1.5% 450 MG/30 ML VIAL ONE (10:25)
[2018-09-07] MEDS ORDERED: KETAMINE HCL 100 MG/2 ML SYRINGE IV ONE (10:54)
[2018-09-07] MEDS ORDERED: Sodium Chloride 0.9% vial 40 ML ONE (11:06)
[2018-09-07] MEDS ORDERED: LIDOCAINE HCL 2 % 10 ML JELLY URO-JECT TOPICAL ONE ×2 (11:15→11:54)
[2018-09-07] MEDS ORDERED: fentaNYL Inj 100 MCG/2 ML VIAL ONE (11:17)
[2018-09-07] MEDS ORDERED: TRANEXAMIC ACID 1,000 MG / 10 ML VIAL ONE ×2 (11:34→14:59)
--- NOTE | 2018-09-07 13:12 | CRNA.PROGR ---
Anesthesia Time - Procedure/Recovery Time Start Date: 09/07/18 End Date: 09/07/18 Anesthesia : Time In: 10:53 Anesthesia : Time Out: 15:31 Anesthesia : Total Time: 278 - Block Time Start Date: 09/07/18 End Date: 09/07/18 PreOp Block : Time In: 10:17 PreOp Block : Time Out: 10:45 PreOp Block : Total Time: 28 - Total Anesthesia Time Total Anesthesia Time (minutes): 306 - Other Weight: 112.037 kg Height: 5 ft 9 in Body Mass Index (BMI): 36.4 Physical Status: P2 Anesthesia Type: General Anesthesia : ET
--- NOTE | 2018-09-07 13:17 | CRNA.PROCE ---
Nerve Block Documentation - - Safety Measures: Time Out Taken, Site Verified - - Type of Nerve Block Used: Right Adductor Canal Nerve Block Position for Nerve Block: Supine Moniters Used During Block: EKG, SPO2, NIBP Oxygen Supplemented: Yes Sedation Used - Enter Amount in Comment Field [ANES.SEDAT]: Midazolam (mg): Yes (3), Fentanyl (mcg): Yes (100) Skin Prep Used: ChloroPrep (twice) Draped: No Technique: Ultrasound Nerve Block Needle Used: EchoBright 100 mm Local Anesthetic - Enter Amt in Comment Field [ANES.LOCNB]: 0.5 % Bupivicaine with Epinephrine 1:200,000 (mL): Yes (18 ml), 2 % Mepivacaine (mL): Yes (13 ml 0f 1.5% mepivicaine) Additives to Nerve Blocks: Dexamethasone (mg): Yes (10) - - PreOp Block : Time In: 10:17 PreOp Block : Time Out: 10:45 Anesthesia Time - Block Time PreOp Block : Time In: 10:17 PreOp Block : Time Out: 10:45 - Other Weight: 112.037 kg Height: 5 ft 9 in Body Mass Index (BMI): 36.4
--- NOTE | 2018-09-07 13:19 | CRNA.PROGR ---
Post Anesthesia Phase II - Post Anesthesia Phase II Patient Stable and Discharged To: Med/Surg Care Assumed By Surgeon: Goran Fleming MD Temperature: 98.6 F Pulse Rate: 81 Respiratory Rate: 16 Blood Pressure: 166/83 Pulse Ox: 93 Total Loco Score at Discharge: 9 Post Anesthesia Discharge Criteria Met: Yes
--- NOTE | 2018-09-07 13:19 | CRNA.PROGR ---
Anesthesia Recovery Phase I - Post Anesthesia Evaluation Patient's Condition on Arrival in Phase II: Stable Pain Level: 2
[2018-09-07] MEDS ORDERED: ONDANSETRON 4 MG/2 ML VIAL ONE (13:56)
[2018-09-07] MEDS ORDERED: Prochlorperazine Edisylate Inj 10mg/2ml vial IVP PRN (14:25)
[2018-09-07] MEDS ORDERED: Ondansetron ODT Tab 8 MG TAB PO PRN ×2 (14:25→16:36)
[2018-09-07] MEDS ORDERED: ONDANSETRON 4 MG/2 ML VIAL IVP PRN ×2 (14:25→16:36)
[2018-09-07] MEDS ORDERED: fentaNYL Inj 100 MCG/2 ML VIAL IVP PRN (14:25)
[2018-09-07] MEDS ORDERED: ATROPINE SULFATE 0.4 MG/1 ML VIAL IVP PRN (14:25)
[2018-09-07] MEDS ORDERED: HYDROmorphone 2 MG/1 ML IVP PRN ×2 (14:25→16:36)
[2018-09-07] MEDS ORDERED: Lactated Ringers 1,000 ML PRIMARY IV SCH (14:30)
[2018-09-07] MEDS ORDERED: KETOROLAC 30 MG/1 ML VIAL ONE (14:34)
--- NOTE | 2018-09-07 15:33 | ORTHO.OP ---
Surgery Date: 09/07/18 Preoperative Diagnosis: #1 osteoarthritis right knee #2 arthrofibrosis left total knee Postoperative Diagnosis: Same Procedure: #1 right total knee arthroplasty using the Red persona knee system cruciate sacrificing #2 manipulation left knee under anesthesia Surgeon: Goran Fleming MD Cold Header: CHERIE Hardy Anesthesia Provider: Megan Feng CRNA Anesthesia Type: General, Regional Estimated Blood Loss (mL): 200 Fluids: 3 L crystalloid Findings: Urine output 200 mL Total tourniquet time 86 minutes at 320 Complications: None Operative Summary: Extubated and taken to recovery in stable condition.
[2018-09-07] MEDS ORDERED: Sodium Chloride 0.9% 500 ML ONE (15:47)
[2018-09-07] MEDS ORDERED: BISACODYL 10 MG SUPPOSITORY RECTAL PRN (16:36)
[2018-09-07] MEDS ORDERED: Prochlorperazine Tab 10 MG TAB PO PRN (16:36)
[2018-09-07] MEDS ORDERED: IBUPROFEN 400 MG TABLET PO PRN (16:36)
[2018-09-07] MEDS ORDERED: ACETAMINOPHEN 325 MG TABLET PO PRN (16:36)
[2018-09-07] MEDS ORDERED: CALCIUM CARBONATE 500 MG (TUMS) CHEWABLE TABLET PO PRN (16:36)
[2018-09-07] MEDS ORDERED: MAG HYDROX/AL HYDROX/SIMETH 30 ML SUSP PO PRN (16:36)
[2018-09-07] MEDS ORDERED: diphenhydrAMINE 25 MG CAPSULE PO PRN (16:36)
--- NOTE | 2018-09-07 17:37 | PDOC ---
HPI - History of Present Illness Date of Service: 09/07/18 Time of Service: 17:32 Chief Complaint: Right knee pain History of Present Illness: This very pleasant 73-year-old male who has benign prostatic hypertrophy, bilateral knee osteoarthritis status post left total knee arthroplasty in May 2018, and hypertension amongst other issues, who comes in today for a right total knee arthroplasty done by Dr. Fleming. Please see his notes regarding the procedure. The patient thus far has had great pain control. He denies any chest pain, shortness breath, nausea or vomiting. He is not overly hungry, but he is thirsty and would like to drink some water. He states his right knee has been causing some problems in terms of pain, but he was very glad to proceed with the knee replacement today as he had failed conservative measures with by mouth medications for pain control. He was very pleased with his left knee replacement and states that that has gone very well. He states he does not have pain in the left knee and it's allow him to do his activities such as fishing more regularly. We are asked at this time to consult on the patient by Dr. Fleming, and when I reviewed the patient's history, physical exam, and laboratory data, I noted that he had some bacteria in the urine. He was given Ancef in the operating suite, and has 2 more doses of Ancef for surgical prophylaxis, but I think in this patient's situation given his benign prostatic hypertrophy and history of prostate issues, I would like to air on the side of possible infection and continue to treat for infection present on admission, and I discussed that with Dr. Fleming and he was in agreement as well. We will reculture the urine and look for potential bacteria as there were a lot of epithelial cells and today's sample. Past Medical History Medical History: 1. Hypertension. 2. Hypothyroidism. 3. Benign prostatic hypertrophy, patient states that he had workup that showed negative workup for prostate cancer. 4. Bilateral knee osteoarthritis. He has had both knees replaced, right knee today. 5. Hypercholesterolemia. 6. 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 Cholecystectomy. 2. Right knee cartilage surgery. 3. Colonoscopy with history of colon polyps. He follows Dr. Hernandez for this. 4. Status post left knee replacement May 2018 Pertinent Family History: Brother had colon cancer and of complications of multiple sclerosis Past Social History: Does not smoke or drink alcohol. . Has one healthy daughter. Lives here in [place], [place]. Tobacco Use: Never Smoker In the Past 12 Months, Have Used or Abuse Any of the Following Substance: None Alcohol Use: None Medication / Allergies Home Medications: Home Medications Medication Instructions Recorded Confirmed Type aspirin 81 mg tablet,delayed 81 mg PO DAILY 09/24/17 09/06/18 History release amlodipine 5 mg tablet 5 mg PO QDAY #90 tab 07/19/18 09/06/18 Rx gabapentin 300 mg capsule 300 mg PO BID #180 cap 07/19/18 09/06/18 Rx levothyroxine 137 mcg tablet 137 mcg PO DAILY #90 tab 07/19/18 09/06/18 Rx lisinopril 40 mg tablet 40 mg PO BID #180 tab 07/19/18 09/06/18 Rx potassium chloride ER 20 mEq 20 meq PO BID #180 tab 07/19/18 09/06/18 Rx tablet,extended release pravastatin 40 mg tablet 40 mg PO QHS #90 tab 07/19/18 09/06/18 Rx furosemide 20 mg tablet 20 mg PO BID #50 tab 08/30/18 09/06/18 Rx Allergies/Adverse Reactions: Allergies Allergy/AdvReac Type Severity Reaction Status Date / Time No Known Allergies Allergy Verified 09/07/18 09:24 Review of Systems - Constitutional Constitutional: REPORTS: Negative System Review - Respiratory Respiratory: REPORTS: Negative System Review - Cardiovascular Cardiovascular: REPORTS: Negative System Review - Gastrointestinal Gastrointestinal / Abdominal: REPORTS: Negative System Review - Genitourinary Genitourinary: REPORTS: Other (BPH symptoms) - Musculoskeletal Musculoskeletal: REPORTS: See HPI - Neurological Neurologic: REPORTS: Negative System Review Exam - Vitals Vital Signs: Vital Signs Temperature 97.8 F Temperature Source Temporal Artery Scan Pulse Rate [Pulse Oximeter] 82 Pulse Rate 79 Respiratory Rate 16 Blood Pressure [Right Arm] 145/65 Blood Pressure 128/60 Pulse Ox 97 Oxygen Flow Rate 3.5 Oxygen Delivery Method Nasal Cannula Height 5 ft 9 in Weight 247 lb - General General Appearance: No Acute Distress, Cooperative - Head Head Exam: Normal Inspection, Normocephalic, Atraumatic - Eye Eye Exam: POSITIVE: No Scleral Icterus - ENT ENT Exam: POSITIVE: Mucous Membranes Moist - Neck Neck Exam: Normal Inspection, No Tenderness, No Lymphadenopathy, No Thyromegaly, JVP is not Raised - Respiratory Respiratory Exam: POSITIVE: Clear to Auscultation - Bilaterally, Breathing Non Labored - Cardiovascular Cardiovascular Exam: POSITIVE: RRR, No Murmur, No Clicks, No Gallops, No Rubs, No JVD - GI/Abdominal GI/Abdominal Exam: POSITIVE: Normal Bowel Sounds, Non Tender, Non Distended, Soft - Rectal Rectal Exam: POSITIVE: Deferred - External Exam: POSITIVE: Deferred Exam: POSITIVE: Deferred - Extremities Extremities Exam: POSITIVE: No Clubbing Present, No Edema Present, No Cyanosis Present Additional Extremities Exam Details: Right knee is dressed, dressing is clean, dry, intact - Neurological Neurological Exam: POSITIVE: Alert, Oriented x 3, No Facial Droop, Speech Intact / Clear - Psychiatric Psychiatric Exam: POSITIVE: Normal Affect, Normal Mood Results - Labs Additional Lab Results: 12/13/12 08/05/18 08/05/18 08:22 10:02 10:02 WBC 5.07 Hgb 14.9 RDW 13.9 Plt Count 258 PT INR Sodium 143 Potassium 4.0 Chloride 107 Carbon Dioxide 26 Anion Gap 10 BUN 27 H Creatinine 0.7 BUN/Creatinine Ratio 38.57 H Glucose 88 Calculated Osmolality 299.0 H Calcium 9.5 Total Bilirubin 0.7 AST 21 ALT 32 Alkaline Phosphatase 63 Total Protein 8.0 Albumin 4.4 Globulin 3.6 Albumin/Globulin Ratio 1.20 L Urine Occult Blood Urine Nitrate Ur Leukocyte Esterase Ur Squamous Epith Cells Ur Renal Epithelial Cell Urine Bacteria Urine Casts 09/07/18 09/07/18 09:17 09:53 WBC Hgb RDW Plt Count PT 10.6 INR 1.04 Sodium Potassium Chloride Carbon Dioxide Anion Gap BUN Creatinine BUN/Creatinine Ratio Glucose Calculated Osmolality Calcium Total Bilirubin AST ALT Alkaline Phosphatase Total Protein Albumin Globulin Albumin/Globulin Ratio Urine Occult Blood Small H Urine Nitrate Negative Ur Leukocyte Esterase Negative Ur Squamous Epith Cells Moderate Ur Renal Epithelial Cell Rare Urine Bacteria Many H Urine Casts Rare - EKG Data -: EKG Interpreted by Me (From 08/05/2018) Rate: Normal EKG Shows Normal: Sinus Rhythm Assessment and Plan - Patient Problems (1) Benign prostatic hyperplasia Current Visit: Yes Status: Acute Code(s): N40.0 - Benign prostatic hyperplasia without lower urinary tract symptoms Qualifiers: Lower urinary tract symptom presence: unspecified whether lower urinary tract symptoms present Qualified Code(s): N40.0 - Benign prostatic hyperplasia without lower urinary tract symptoms (2) Essential hypertension Current Visit: Yes Status: Chronic (3) Acquired hypothyroidism Current Visit: Yes Status: None (4) Hyperlipidemia Current Visit: Yes Status: Chronic Qualifiers: Hyperlipidemia type: mixed hyperlipidemia Qualified Code(s): E78.2 - Mixed hyperlipidemia (5) Status post right knee replacement Current Visit: Yes Status: Acute Code(s): Z96.651 - Presence of right artificial knee joint - Assessment / Plan Additional Assessment/Plan Details: Given perioperative state, I would recommend holding off on SHANTAL inhibitor at this time. I will watch blood pressures over the next couple days and if they stay elevated consistently, may add back sooner than discharged home. Given the urinalysis results, I think we should treat as if this is a urinary tract infection, present on admission, regardless of symptoms and I will start Rocephin. I will reculture and check urinalysis. This is to prevent any seeding of the joint. It is a longshot possibility, but I think this is the best way to prevent that from happening. PT and OT. DVT prophylaxis. Patient will get another liter of LR overnight, until his by mouth intake improves. Labs in a.m. Thank you for this consult. I'll be the hospitalist services pleasure to assist in this patient's care during the hospital stay.
[2018-09-07] MEDS: AmLODIPine Tab 5 MG TABLET PO SCH (17:51)
[2018-09-07] MEDS: cefTRIAXone Inj 2 GM in Sodium Chloride 0.9% 100 ML IV SCH (17:51)
[2018-09-07 18:03] LABS: BILIRUBIN,URINE NEGATIVE (NEG); CLARITY,URINE CLEAR (CLEAR); COLOR,URINE YELLOW (Y); GLUCOSE, URINE (UA) NEGATIVE (NEG); OCCULT BLOOD,URINE MODERATE (NEG); PROTEIN,URINE TRACE mg/dl (NEG); UROBILINOGEN,URINE 0.2 EU/dL (0.2)
[2018-09-07 18:13] LABS: URINE SAMPLE TYPE CLEAN CATCH URINE
[2018-09-07 18:14] LABS: RBC,URINE 25-40 /hpf; SQUAMOUS EPITHELIAL CELL,UR FEW; URINE SPECIFIC GRAVITY - MAN 1.024; WBC,URINE RARE
[2018-09-07 18:15] LABS: BACTERIA,URINE FEW; URINE CASTS FEW; URINE CRYSTALS FEW
[2018-09-07] MEDS: ceFAZolin Inj 2gm (Premix) 2 GM/50 ML BAG IV SCH (19:13)
[2018-09-07] MEDS: oxyCODONE/APAP 7.5/325 Tab 1 TAB TAB PO PRN (20:08)
[2018-09-07] MEDS: DOCUSATE 100 MG CAPSULE PO SCH (20:09)
[2018-09-07] MEDS: Pravastatin Tab 40 MG TAB PO SCH (20:09)
[2018-09-07] MEDS: GABAPENTIN 300 MG CAPSULE PO SCH (20:09)
[2018-09-07] MEDS: POTASSIUM CHLORIDE 20 MEQ TAB PO SCH (20:09)
[2018-09-07] MEDS ORDERED: LISINOPRIL 20 MG TABLET PO SCH (21:00)
[2018-09-08] MEDS: oxyCODONE/APAP 7.5/325 Tab 1 TAB TAB PO PRN ×5 (00:24→19:12)
[2018-09-08] MEDS: ceFAZolin Inj 2gm (Premix) 2 GM/50 ML BAG IV SCH (02:41)
[2018-09-08] MEDS: LEVOTHYROXINE 137 MCG TABLET PO SCH (04:40)
[2018-09-08 04:57] LABS: Hematocrit [HCT] 39.4 % (42.0-52.0); Hemoglobin [HGB] 12.5 g/dL (14.0-18.0); MEAN CORPUSCULAR HEMOGLOBIN 26.8 PG (27-31); MEAN CORPUSCULAR HGB CONC 31.7 g/dL (33-37); MEAN CORPUSCULAR VOLUME 84.4 FL (80-90); MEAN PLATELET VOLUME 9.4 FL (7.4-12.2); RED BLOOD COUNT 4.67 10^6/uL (4.70-6.10)
[2018-09-08 05:15] LABS: BLOOD UREA NITROGEN 23 mg/dL (7-22); BUN/CREATININE RATIO 32.85 (6-20)
[2018-09-08] MEDS: Lactated Ringers 1,000 ML PRIMARY IV SCH (06:36)
[2018-09-08] MEDS: FUROSEMIDE 20 MG TABLET PO SCH ×2 (06:47→12:48)
--- NOTE | 2018-09-08 08:28 | ORTHO.PROG ---
Last Taken Vital Signs: Vital Signs - Last Taken Temperature 97.8 F 09/08/18 05:00 Pulse Rate 72 09/08/18 05:00 Respiratory Rate 16 09/08/18 06:53 Blood Pressure 143/66 09/08/18 05:00 Pulse Ox 94 09/08/18 05:16 Subjective: Patient sitting up in bed. Doing well. Rates his pain at a 4. Using the CPM machine. States his left knee really doesn't hurt much. Has been running the CPM on the left leg at 120. Objective: Vital signs stable patient afebrile. Hemoglobin and hematocrit 12 and 39. UA shows some RBCs and a few WBCs. Will DC the [place] today. Right knee dressing clean and dry. Drain has been emptied twice. Nothing in there currently. Left knee flexion to about 108 with heavy pressure. Seems to be better distended. Assessment: Impression: Doing well postop day 1. Minimal pain but the block is currently in place. Plan: Plan: Is to DC his [place]. Will put him on Xarelto 10 mg daily. We will do physical therapy focusing hard on left knee range of motion as well as right knee.
[2018-09-08] MEDS: POTASSIUM CHLORIDE 20 MEQ TAB PO SCH ×2 (08:31→20:31)
[2018-09-08] MEDS: DOCUSATE 100 MG CAPSULE PO SCH ×2 (08:31→20:31)
[2018-09-08] MEDS: AmLODIPine Tab 5 MG TABLET PO SCH (08:31)
[2018-09-08] MEDS: GABAPENTIN 300 MG CAPSULE PO SCH ×2 (08:31→20:30)
[2018-09-08] MEDS ORDERED: ASPIRIN EC 81 MG TABLET PO SCH (09:00)
[2018-09-08] MEDS: Rivaroxaban Tab 10 MG TAB PO SCH (11:06)
--- NOTE | 2018-09-08 11:36 | DI ---
XR KNEE 1 OR 2 VWS 09/07/2018 4:36 PM HISTORY: [facility] [place] [facility] ^right total knee. Comparison: 02/09/2018. Findings: AP and crosstable lateral views of the right knee show postsurgical changes consistent wit h total knee arthroplasty. Overlying bandage obscures fine anatomic detail. There is no evidence of h ardware fracture or loosening. No acute osseous abnormality is detected. There are corticated ossific fragments along the medial/lateral and posterior joint line. There is a drain in the suprapatellar a nd knee joint space. Surgical merry project over the anterior skin line. Superior and inferior ye llar enthesophytes are noted. No suprapatellar joint effusion is present. Gas is noted in the soft ti ssues, an expected finding in the immediate postoperative timeframe. Impression: 1. Status post total knee arthroplasty without evidence of hardware complication.
--- NOTE | 2018-09-08 14:34 | PTI REPORT ---
Thank you for the referral of Teodoro Mckeon. He was seen on 09/08/18 for an inpatient evaluation status post right total knee arthroplasty and left knee manipulation. SUBJECTIVE: The patient is a 73-year-old male. The patient reports that he lives at home with his . He has two steps to get into his home. The patient does have a walker. The patient states he was previously independent. The patient rates his pain as a 4 to 5/10 on the verbal analog scale (0=no pain, 10=worst pain). PAST MEDICAL HISTORY: Past medical history can be found in the patient's medical record. OBJECTIVE FINDINGS: General observations: Nursing was present upon the therapist's arrival. The patient had a drain and was on three liters of oxygen and had an [employer] [facility] [employer] [facility] present in his room. Range of motion: The patient demonstrates range of motion in the left lower extremity of 105 degrees of knee flexion. Transfers: The patient required contact guard assist x2 for sit to stand transfer. The patient's oxygen saturation was 96% while seated edge of bed. Ambulation: The patient required contact guard assist x1 for gait with standard walker. Strength: Manual muscle testing was not formally assessed due to recent procedure. ASSESSMENT: The patient is a 73-year-old male that presents status post right total knee arthroplasty and left knee manipulation. The patient would benefit from skilled therapy to improve range of motion, functional mobility, pain control, and to return to prior level of function. The patient's prognosis for therapy is good. Problem List: Decreased strength Decreased range of motion Decreased functional mobility Short-Term Goals: To be met by discharge from inpatient: Patient will demonstrate 0 to 110 degrees of motion passively on the left knee. Patient will be independent with all transfers. Patient will be able to ambulate 150 feet with his walker independently. Long-Term Goals: To be met following discharge from inpatient: Patient will benefit from outpatient physical therapy. TREATMENT PLAN: Patient will be seen B.I.D during the week and one time per day over the weekend as an inpatient for therapeutic exercises, functional activity, neuromuscular reeducation, gait training, range of motion, and modalities as needed. INITIAL TREATMENT: Treatment today consisted of the initial evaluation followed by the patient being transferred to the restroom with walker and contact guard assist. The patient's standing balance was fair to good. The patient then returned to bed where passive range of motion was performed to the left knee in seated and in supine. The patient was then transferred to his chair with contact guard assist. The patient was left in chair with chair alarm activated and call light within reach. BEN
--- NOTE | 2018-09-08 15:51 | PT.PROG ---
Progress Note Progress Note: S: pt reports he is doing ok, L knee no pain, R knee some pain. O: nsg okay'd prior to PT. pt instructed in sit to stand transfers x 10 reps all CGA x 1, pt instructed in ambulation 80 feet CGA x 1 with standard walker. pt didn't want to go to therapy gym due to not being able to get dressed. pt instructed in LAQs x 10 reps, seated marches x 10 reps, ankle pumps x 10 reps, SLR , quad sets, heel slides, hip abd/add all x 10 reps each. PROM in seated and supine R and L knee . 113 degrees L knee PROM. pt left in bed with CPM on and call light within reach and bed alarm activated. A: pt tolerated therapy well, improvement in ROM since this morning. continues to benefit from skilled therapy P: cont per POC.
[2018-09-08] MEDS: cefTRIAXone Inj 2 GM in Sodium Chloride 0.9% 100 ML IV SCH (17:46)
--- NOTE | 2018-09-08 19:56 | PDOC(PROG) ---
Date of Service: 09/08/18 Time of Service: 17:30 Interval History: no chest pains, no SOB. no nausea or vomiting. pain in knees well controlled. neuropathy in left foot seems worse. Objective : Data - Labs CBC and BMP: 09/08/18 04:20 09/08/18 04:20 Additional Lab Results: 09/07/18 17:31 Urine Occult Blood Moderate H Urine RBC 25-40 A Urine WBC Rare Urine Bacteria Few Ur Culture Indicated? Culture not set Objective : Exam - General General Appearance: No Acute Distress, Cooperative Additional General Exam Details: Vital Signs - Last Taken Temperature 97.9 F 09/08/18 16:49 Pulse Rate 77 09/08/18 16:49 Respiratory Rate 20 09/08/18 16:49 Blood Pressure 151/66 09/08/18 16:49 Pulse Ox 94 09/08/18 16:49 - Eye Eye Exam: No Scleral Icterus - ENT ENT Exam: Mucous Membranes Moist - Neck Neck Exam: JVP is not Raised - Respiratory Respiratory Exam: Clear to Auscultation - Bilaterally, Breathing Non Labored - Cardiovascular Cardiovascular Exam: RRR, No Murmur, No Clicks, No Gallops, No Rubs, No JVD - GI/Abdominal GI/Abdominal Exam: Normal Bowel Sounds, Non Tender, Non Distended, Soft - Extremities Extremities Exam: No Clubbing Present, No Edema Present, No Cyanosis Present Additional Extremities Exam Details: right knee swelling, dressing intact. clean, dry, intact - Neurological Neurological Exam: Alert, Oriented x 3, No Facial Droop, Speech Intact / Clear, Moves All Extremities Equally Additional Neurological Exam Details: mild tremor in right hand - Psychiatric Psychiatric Exam: Normal Affect, Normal Mood Assessment and Plan - Patient Problems (1) Peripheral neuropathy Current Visit: No Status: Chronic Code(s): G62.9 - Polyneuropathy, unspecified Qualifiers: Peripheral neuropathy type: idiopathic neuropathy, unspecified Qualified Code(s): G60.9 - Hereditary and idiopathic neuropathy, unspecified (2) Benign prostatic hyperplasia Current Visit: Yes Status: Acute Code(s): N40.0 - Benign prostatic hyperplasia without lower urinary tract symptoms Qualifiers: Lower urinary tract symptom presence: unspecified whether lower urinary tract symptoms present Qualified Code(s): N40.0 - Benign prostatic hyperplasia without lower urinary tract symptoms (3) Essential hypertension Current Visit: Yes Status: Chronic (4) Acquired hypothyroidism Current Visit: Yes Status: None (5) Hyperlipidemia Current Visit: Yes Status: Chronic Qualifiers: Hyperlipidemia type: mixed hyperlipidemia Qualified Code(s): E78.2 - Mixed hyperlipidemia (6) Status post right knee replacement Current Visit: Yes Status: Acute Code(s): Z96.651 - Presence of right artificial knee joint - Assessment / Plan Additional Assessment/Plan Details: check vitamin B12, methylmalonic acid with reduced indices, check iron panel PT and OT DVT prophylaxis as per ortho add lisinopril back, euvolemic and patient SBPs coming up.
[2018-09-08] MEDS: Pravastatin Tab 40 MG TAB PO SCH (20:30)
[2018-09-08] MEDS: LISINOPRIL 20 MG TABLET PO SCH (20:31)
[2018-09-09] MEDS: oxyCODONE/APAP 7.5/325 Tab 1 TAB TAB PO PRN ×4 (01:23→18:28)
[2018-09-09] MEDS: LEVOTHYROXINE 137 MCG TABLET PO SCH ×2 (04:26→04:47)
[2018-09-09 05:58] LABS: Hematocrit [HCT] 38.5 % (42.0-52.0); Hemoglobin [HGB] 11.9 g/dL (14.0-18.0); MEAN CORPUSCULAR HEMOGLOBIN 26.6 PG (27-31); MEAN CORPUSCULAR HGB CONC 30.9 g/dL (33-37); MEAN CORPUSCULAR VOLUME 85.9 FL (80-90); MEAN PLATELET VOLUME 9.6 FL (7.4-12.2); RED BLOOD COUNT 4.48 10^6/uL (4.70-6.10)
[2018-09-09 06:21] LABS: BLOOD UREA NITROGEN 21 mg/dL (7-22)
[2018-09-09] MEDS: FUROSEMIDE 20 MG TABLET PO SCH ×2 (06:23→13:20)
--- NOTE | 2018-09-09 07:53 | ORTHO.PROG ---
Last Taken Vital Signs: Vital Signs - Last Taken Temperature 97.6 F 09/09/18 04:25 Pulse Rate 72 09/09/18 06:43 Respiratory Rate 17 09/09/18 06:43 Blood Pressure 126/71 09/09/18 04:25 Pulse Ox 91 09/09/18 04:25 Subjective: Patient is sitting in bed using CPM machine on left knee. States he is feeling pretty good. Percocet seems to be controlling his pain. Has not required any dilaudid additionally. Objective: Vital signs stable patient afebrile. Hemoglobin and hematocrit 11.9 and 39. Right knee incision clean and dry. Drain was removed. It had pulled out of the knee was sitting under the dressing. Incision is clean and dry. Minimal effusion. Patient is able to lift his leg without any assistance. Left knee shows flexion to 110 in the CPM machine which is definitely improved. Assessment: Impression: Doing excellent after total knee right side and manipulation of left knee. Plan: Plan: Patient will likely be discharged tomorrow or Thursday. We'll continue physical therapy. New dressing applied to right knee today and I applied RACHEL rios. Patient is on Xarelto for DVT prophylaxis.
--- NOTE | 2018-09-09 09:46 | OT.PROG ---
Progress Note Progress Note: S: pt reports that his new knee is a little sore but the manipulated knee is feeling great. O: pt was seen in his room and completed toilet transfer/toileting Ind. He returned to his chair where he donned LE/UE garments INd. He chose to transfer entire way to therapy, taking no breaks. He completed bed mobility Ind and received heat. A: pt may continue to benefit from therapy to improve his overall function while decreasing pain. Continue per manipulation and TKA protocol. P: continue per POC.
[2018-09-09] MEDS: AmLODIPine Tab 5 MG TABLET PO SCH (10:03)
[2018-09-09] MEDS: Rivaroxaban Tab 10 MG TAB PO SCH (10:04)
[2018-09-09] MEDS: LISINOPRIL 20 MG TABLET PO SCH ×2 (10:04→20:49)
[2018-09-09] MEDS: DOCUSATE 100 MG CAPSULE PO SCH ×2 (10:04→20:49)
[2018-09-09] MEDS: GABAPENTIN 300 MG CAPSULE PO SCH ×2 (10:05→20:49)
[2018-09-09] MEDS: POTASSIUM CHLORIDE 20 MEQ TAB PO SCH ×2 (10:05→20:49)
--- NOTE | 2018-09-09 10:55 | PT AM DAY ---
Diagnosis : Right TKA/Left Knee Manipulation AM - Physical Therapy S: The patient reports no new changes. O: The patient was seen for PT for both of his knees. The patient walked to the department and back. His right knee did well with open and closed chain exercises. He demonstrated -3 to 97 degrees of passive movement on the right and -2 to 116 degrees of passive movement on the left. He was fairly independent in all of his activities today and his pain seemed to be well in control. A: The patient did extremely well this morning. The therapist was very pleased with his progress today. P: Continue seeing patient BID during the week and one time per day over the weekend for transfers, ambulation, and range of motion/strengthening exercises. MTDD
--- NOTE | 2018-09-09 14:44 | PDOC(PROG) ---
Date of Service: 09/09/18 Time of Service: 14:41 Interval History: No chest pain, shortness breath, nausea or vomiting. Pain is controlled in both left and right knee. He states he is getting much more movement from his left knee after his manipulation. His right knee pain is well-controlled, drain pulled today, and he is doing well with therapy. Objective : Data - Labs CBC and BMP: 09/09/18 05:10 09/09/18 05:10 Additional Lab Results: 09/09/18 05:10 Iron 51 TIBC 286 % Saturation 17.83 Objective : Exam - General General Appearance: No Acute Distress, Cooperative Additional General Exam Details: Vital Signs - Last Taken Temperature 97.6 F 09/09/18 12:11 Pulse Rate 87 09/09/18 12:11 Respiratory Rate 12 09/09/18 12:11 Blood Pressure 119/68 09/09/18 12:11 Pulse Ox 90 09/09/18 12:11 - Head Head Exam: Normal Inspection, Normocephalic, Atraumatic - Eye Eye Exam: No Scleral Icterus - ENT ENT Exam: Mucous Membranes Moist - Neck Neck Exam: JVP is not Raised - Respiratory Respiratory Exam: Clear to Auscultation - Bilaterally, Breathing Non Labored - Cardiovascular Cardiovascular Exam: RRR, No Murmur, No Clicks, No Gallops, No Rubs, No JVD - GI/Abdominal GI/Abdominal Exam: Normal Bowel Sounds, Non Tender, Non Distended, Soft - Extremities Extremities Exam: No Clubbing Present, No Edema Present Additional Extremities Exam Details: Right knee is dressed, dressing is clean, dry, intact - Neurological Neurological Exam: Alert, Oriented x 3, No Facial Droop, Speech Intact / Clear - Psychiatric Psychiatric Exam: Normal Affect, Normal Mood Assessment and Plan - Patient Problems (1) Peripheral neuropathy Current Visit: No Status: Chronic Code(s): G62.9 - Polyneuropathy, unspecified Qualifiers: Peripheral neuropathy type: idiopathic neuropathy, unspecified Qualified Code(s): G60.9 - Hereditary and idiopathic neuropathy, unspecified (2) Benign prostatic hyperplasia Current Visit: Yes Status: Acute Code(s): N40.0 - Benign prostatic hyperplasia without lower urinary tract symptoms Qualifiers: Lower urinary tract symptom presence: unspecified whether lower urinary tract symptoms present Qualified Code(s): N40.0 - Benign prostatic hyperplasia without lower urinary tract symptoms (3) Essential hypertension Current Visit: Yes Status: Chronic (4) Acquired hypothyroidism Current Visit: Yes Status: None (5) Hyperlipidemia Current Visit: Yes Status: Chronic Qualifiers: Hyperlipidemia type: mixed hyperlipidemia Qualified Code(s): E78.2 - Mixed hyperlipidemia (6) Status post right knee replacement Current Visit: Yes Status: Acute Code(s): Z96.651 - Presence of right artificial knee joint - Assessment / Plan Additional Assessment/Plan Details: Still awaiting folic acid and B12 level. Also awaiting methylmalonic acid level Blood pressure somewhat at acceptable range back on lisinopril. Continue PT and OT. Iron level looks okay as does iron panel. Not sure as to why indices are discrepant at this point, but we'll see what the folic acid and B12 levels show. DVT prophylaxis currently with Xarelto. Typically I recommend 14 days postop for a knee replacement, but as per orthopedics.
--- NOTE | 2018-09-09 15:41 | PT.PROG ---
Progress Note Progress Note: S. Patient stated that he is feeling good this afternoon. O. Patient ambulated 175 feet to the therapy gym where he had heat to the back of his knee to decrease pain. Patient then performed exercises in the form of; heel slides, quad sets, glute sets, ankle pumps, short arc quads, heel toe raises, hip abduction/adduction, straight leg raises, seated long arc quads, marches, ball squeezes, clam shells, resisted knee flexion, heel toe raises, all x 15 bilaterally with red thera bands, Patient then performed sit to stands x 10, then ambulated 175 feet to his room and was left with call light and alarm. A. Patient tolerated therapy well, he was able to perform all exercises with no increase in pain or problems. Patient was able to achieve approximately 90 degrees of flexion on his right and 115 on the left knee, he would continue to benefit from skilled therapy to increase strength, endurance, and range of motion at this time. P. Continue POC.
[2018-09-09] MEDS: cefTRIAXone Inj 2 GM in Sodium Chloride 0.9% 100 ML IV SCH (17:12)
[2018-09-09] MEDS: Pravastatin Tab 40 MG TAB PO SCH (20:49)
[2018-09-09] MEDS: BISACODYL 5 MG TABLET PO PRN (20:49)
[2018-09-10] MEDS: oxyCODONE/APAP 7.5/325 Tab 1 TAB TAB PO PRN ×4 (00:44→17:49)
[2018-09-10 05:20] LABS: Hematocrit [HCT] 37.4 % (42.0-52.0); Hemoglobin [HGB] 11.7 g/dL (14.0-18.0); MEAN CORPUSCULAR HEMOGLOBIN 26.9 PG (27-31); MEAN CORPUSCULAR HGB CONC 31.3 g/dL (33-37); MEAN PLATELET VOLUME 9.6 FL (7.4-12.2); RED BLOOD COUNT 4.35 10^6/uL (4.70-6.10)
[2018-09-10] MEDS: LEVOTHYROXINE 137 MCG TABLET PO SCH (05:31)
[2018-09-10 05:33] LABS: BLOOD UREA NITROGEN 23 mg/dL (7-22); BUN/CREATININE RATIO 28.75 (6-20)
[2018-09-10] MEDS: FUROSEMIDE 20 MG TABLET PO SCH ×2 (07:08→13:27)
[2018-09-10] MEDS: GABAPENTIN 300 MG CAPSULE PO SCH ×2 (08:17→20:19)
[2018-09-10] MEDS: DOCUSATE 100 MG CAPSULE PO SCH ×2 (08:17→20:19)
[2018-09-10] MEDS: BISACODYL 5 MG TABLET PO PRN ×2 (08:17→22:37)
[2018-09-10] MEDS: Rivaroxaban Tab 10 MG TAB PO SCH (08:17)
[2018-09-10] MEDS: AmLODIPine Tab 5 MG TABLET PO SCH (08:17)
[2018-09-10] MEDS: POTASSIUM CHLORIDE 20 MEQ TAB PO SCH ×2 (08:17→20:19)
[2018-09-10] MEDS: LISINOPRIL 20 MG TABLET PO SCH ×2 (08:18→20:18)
--- NOTE | 2018-09-10 08:22 | ORTHO.PROG ---
Last Taken Vital Signs: Vital Signs - Last Taken Temperature 98.4 F 09/10/18 07:12 Pulse Rate 79 09/10/18 07:12 Respiratory Rate 16 09/10/18 07:12 Blood Pressure 142/80 09/10/18 07:12 Pulse Ox 92 09/10/18 07:12 Subjective: Patient sitting up in bed. Did well yesterday. Therapy reported 90 right knee 115 left knee. Had some stiffness in the middle of the night. Used the CPM machine and got the right knee to 90. Only took 6 Percocet total in 24 hours yesterday. No dialadid used. Objective: Vital signs stable patient afebrile. Hemoglobin and hematocrit 11 and 37. Right knee incision clean and dry. Minimal swelling. Extension is excellent. Left knee is in CPM machine currently. Assessment: Impression: Doing well following right total knee and manipulation left knee. Plan: Plan: Is to keep him until tomorrow morning for continued physical therapy. We'll discharge him likely in the morning after his therapy session.
--- NOTE | 2018-09-10 12:02 | OT.PROG ---
Progress Note Progress Note: S: pt reported that both knees became a little stiff last night. He stated that switching the CPM helped out. O: pt was seen in his room and completed bed mobility with mod Ind to EOB. He then completed toilet transfer Ind to bathroom and hygiene at sink Ind. He completed entire transfer downstairs with use of walker. He completed PT before completing UE exercises with RTB in all planes x15, and cane with 1# to increase strength to assist with transfers and other postural transitions. PT returned him to his room. A: pt may continue to benefit from therapy to improved overall function of both manipulated knee and TKA. P: continue per POC.
--- NOTE | 2018-09-10 12:18 | PT.PROG ---
Progress Note Progress Note: S. Patient stated that he is feeling good this morning. O. Patient ambulated 175 feet to the therapy gym where he had heat to the back of his knees only, then performed heel slides, quad sets, short arc quads, straight leg raises, hip abduction/adduction, seated long arc quads, marches, all x 10 bilaterally, sit to stands, and box step ups with #1 box x 10. Patient ambulated 175 feet back to his room where he was left with alarm and call light. A. Patient tolerated therapy well he was able to perform all exercises with no increase in pain or problems. Patient would continue to benefit from skilled therapy to increase strength, endurance and Range of motion at this time. P. Continue POC.
--- NOTE | 2018-09-10 15:38 | PT.PROG ---
Progress Note Progress Note: S. Patient stated that he is feeling a little stiff this afternoon. O. Patient ambulated 175 feet to the therapy gym where he had heat to the back of his knees then performed, heel slides, quad sets, ankle pumps, short arc quads, hip abduction/adduction, seated long arc quads, and sit to stands all x 10 bilaterally then used the nu-step x 12 minutes. Patient ambulated 175 feet back to his room where he was left in his chair with alarm and call light. A. Patient tolerated therapy well this afternoon, he was able to achieve 112 degrees of flexion on his left knee and approximately 92 degrees on his right. Patient would continue to benefit from one more session of therapy to increase strength and range of motion at this time. P. Continue POC.
[2018-09-10] MEDS: cefTRIAXone Inj 2 GM in Sodium Chloride 0.9% 100 ML IV SCH (17:50)
[2018-09-10] MEDS ORDERED: POLYETHYLENE GLYCOL 3350 17 GM POWDER PO ONE (17:59)
[2018-09-10] MEDS ORDERED: Fleet Enema w/Mineral Oil 133ml RECTAL ONE (17:59)
--- NOTE | 2018-09-10 18:04 | PDOC(PROG) ---
Date of Service: 09/10/18 Time of Service: 18:00 Interval History: Patient seen earlier today. Seen walking and also twice. Doing very well with therapy. Somewhat constipated. No chest pain. No shortness breath. States that he is really motivated to try and change his diet and increase his vegetable intake. We reviewed folic acid level, vitamin B12 level, and iron level which are all low normal. Objective : Data - Labs CBC and BMP: 09/10/18 04:50 09/10/18 04:50 Additional Lab Results: 09/09/18 09/09/18 05:10 05:10 Iron 51 TIBC 286 % Saturation 17.83 Vitamin B12 341 Serum Folate 6.24 Objective : Exam - General General Appearance: No Acute Distress, Cooperative Additional General Exam Details: Vital Signs - Last Taken Temperature 97.8 F 09/10/18 16:06 Pulse Rate 86 09/10/18 16:06 Respiratory Rate 20 09/10/18 16:06 Blood Pressure 116/42 09/10/18 16:06 Pulse Ox 96 09/10/18 16:06 - Eye Eye Exam: No Scleral Icterus - ENT ENT Exam: Mucous Membranes Moist - Neck Neck Exam: JVP is not Raised - Cardiovascular Cardiovascular Exam: RRR, No Murmur, No Clicks, No Gallops, No Rubs, No JVD - GI/Abdominal GI/Abdominal Exam: Normal Bowel Sounds, Non Tender, Non Distended, Soft - Extremities Extremities Exam: No Clubbing Present, No Cyanosis Present Additional Extremities Exam Details: Slight lower extremity edema on right lower extremity distal to knee. Dressing is clean, dry, intact - Neurological Neurological Exam: Alert, Oriented x 3, No Facial Droop, Speech Intact / Clear - Psychiatric Psychiatric Exam: Normal Affect, Normal Mood Assessment and Plan - Patient Problems (1) Peripheral neuropathy Current Visit: No Status: Chronic Code(s): G62.9 - Polyneuropathy, unspecified Qualifiers: Peripheral neuropathy type: idiopathic neuropathy, unspecified Qualified Code(s): G60.9 - Hereditary and idiopathic neuropathy, unspecified (2) Benign prostatic hyperplasia Current Visit: Yes Status: Acute Code(s): N40.0 - Benign prostatic hyperplasia without lower urinary tract symptoms Qualifiers: Lower urinary tract symptom presence: unspecified whether lower urinary tract symptoms present Qualified Code(s): N40.0 - Benign prostatic hyperplasia without lower urinary tract symptoms (3) Essential hypertension Current Visit: Yes Status: Chronic (4) Acquired hypothyroidism Current Visit: Yes Status: None (5) Hyperlipidemia Current Visit: Yes Status: Chronic Qualifiers: Hyperlipidemia type: mixed hyperlipidemia Qualified Code(s): E78.2 - Mixed hyperlipidemia (6) Status post right knee replacement Current Visit: Yes Status: Acute Code(s): Z96.651 - Presence of right art ificial knee joint - Assessment / Plan Additional Assessment/Plan Details: We'll add mineral oil enema, MiraLAX for constipation. We'll start vitamin B12 and folic acid Given UA results at the time of surgery, somewhat suggestive of urinary tract infection and lack of culture, Rocephin has now been on board for 4 days. I think we should definitely finish 1 more day tomorrow. And consider stopping antibiotics tomorrow. He has shown no signs of infection otherwise. Probably 10 more days of DVT prophylaxis from my perspective but as per orthopedics. Patient will do his PT and OT here tomorrow, and then after they are done, the patient likely will be able to discharge home. From the hospitalist perspective, after Rocephin dose tomorrow he could go home. Consider MiraLAX daily while on opiates for pain control. Outpatient PT and OT as already arranged.
[2018-09-10] MEDS: Pravastatin Tab 40 MG TAB PO SCH (20:19)
[2018-09-11] MEDS: LEVOTHYROXINE 137 MCG TABLET PO SCH (04:37)
[2018-09-11] MEDS: FUROSEMIDE 20 MG TABLET PO SCH (06:43)
[2018-09-11] MEDS: oxyCODONE/APAP 7.5/325 Tab 1 TAB TAB PO PRN (06:43)
[2018-09-11 06:44] VITALS: BP 122/58; RESP 20; TEMP 98.1; O2SAT 94
[2018-09-11] MEDS: LISINOPRIL 20 MG TABLET PO SCH (08:28)
[2018-09-11] MEDS: GABAPENTIN 300 MG CAPSULE PO SCH (08:28)
[2018-09-11] MEDS: POTASSIUM CHLORIDE 20 MEQ TAB PO SCH (08:28)
[2018-09-11] MEDS: DOCUSATE 100 MG CAPSULE PO SCH (08:28)
[2018-09-11] MEDS: AmLODIPine Tab 5 MG TABLET PO SCH (08:29)
[2018-09-11] MEDS: Rivaroxaban Tab 10 MG TAB PO SCH (08:29)
[2018-09-11] MEDS ORDERED: CYANOCOBALAMIN (VITAMIN B-12) 1,000 MCG TABLET.ER PO SCH (09:00)
[2018-09-11] MEDS ORDERED: POLYETHYLENE GLYCOL 3350 17 GM POWDER PO SCH (09:00)
[2018-09-11] MEDS ORDERED: FOLIC ACID 1 MG TABLET PO SCH (09:00)
--- NOTE | 2018-09-11 09:59 | ORTHO.PROG ---
Last Taken Vital Signs: Vital Signs - Last Taken Temperature 98.1 F 09/11/18 06:43 Pulse Rate 73 09/11/18 06:43 Respiratory Rate 20 09/11/18 06:43 Blood Pressure 122/58 09/11/18 06:43 Pulse Ox 94 09/11/18 06:43 Subjective: Saw patient in physical therapy this morning. Seems to be doing fairly well. Not reporting much pain. Objective: Vital signs stable patient afebrile. Right knee incision clean and dry. There is a small 2 cm scratch along the lateral aspect of the incision. I think is going to be fine however. No drainage. Minimal effusion. Flexion to about 95-100 with him sitting on a chair. Good extension. Left knee shows 110 of flexion. Assessment: Impression: Doing well postop day 4 from right total knee and manipulation left knee. Plan: Plan: He will be discharged home after physical therapy this morning. I wrote him a prescription for Percocet, Colace, and Xarelto for 7 more days. He will follow-up with me a week from Thursday for staple removal. Will continue outpatient physical therapy on Thursday.
--- NOTE | 2018-09-11 10:20 | OT.PROG ---
Progress Note Progress Note: S: pt stated he was in CPM most of the night. His R knee has been getting tight and his L knee he feels is doing much better. O: pt was seen in his room and he completed bed mobility INd. He completed toilet transfer ind and hygiene at sink ind as well. He completed entire transfer downstairs with use of walker and taking no breaks. He completed LE heat in preparation for activities. He completed LAQ, heal slides, 4-way ankle, all with BLE's. He sat up and completed x10 sit to stands and x10 3# box to increase his overall function during ambulation. He completed 10 min on nU step to work on knee ext/flex and transferred to mat table to receive manual therapy in form of PROM. He was returned to his room and left upright in bed. A: pt tolerate therapy well including manual therapy to 110-112 L flex and apprx 100 deg on R knee. He will return on Thursday as out-pt. P: continue per POC.
--- NOTE | 2018-09-11 11:34 | DCSUMMARY ---
Hospitalization Summary Hospital Course: Final Discharge Diagnosis: Current Visit Problems Problem Status Onset Code Status post right knee replacement Acute Z96.651 Benign prostatic hyperplasia Acute N40.0 Essential hypertension Chronic Hyperlipidemia Chronic Diagnostic Data, Laboratory Data, and Procedures of Signifigance: CBC and BMP 09/10/18 04:50 09/10/18 04:50 0411 History and Physical pertinent to Admission: Course of Hospitalization: Is a very nice 73-year-old gentleman postop day 4 for total knee replacement doing well seen by Dr. Fleming PT and OT and is been cleared to be discharged home. He was started on B12 and folic acid which she will continue as an outpatient [id number]. He was given prescription for MiraLAX constipation pain management pain therapy and anticoagulation by Dr. Fleming. She will continue his PT and OT as recommended by Dr. Fleming as an outpatient patient was treated for UTI for 5 days with Rocephin will continue 3 more days with Augmentin considering his surgery On the date of discharge, the patient was examined: Gen.: No acute distress, alert, nontoxic Heart: Regular rate and rhythm, no murmurs, clicks, gallops, or rubs Lungs: Clear to auscultation bilaterally, breathing is nonlabored Abdomen/GI: Normal tones on auscultation, soft, nontender, nondistended Musculoskeletal/extremities: No clubbing, cyanosis, or edema Vitals reviewed and are listed below Vital Signs (24 hrs) 09/10/18 11:45 09/10/18 16:06 09/10/18 20:26 Temperature 98.2 F 97.8 F 98.8 F Pulse Rate [Pulse Oximeter] 81 86 82 Respiratory Rate 12 20 20 Blood Pressure [Left Arm] 115/45 Blood Pressure [Right Arm] 122/63 116/42 Pulse Ox 91 96 91 09/11/18 00:01 09/11/18 05:00 09/11/18 06:43 Temperature 97.4 F 98.5 F 98.1 F Pulse Rate [Pulse Oximeter] 78 83 73 Respiratory Rate 16 16 20 Blood Pressure [Left Arm] 114/62 Blood Pressure [Right Arm] 123/63 122/58 Pulse Ox 92 91 94 Assessment and Plan: 1. As per discharge assessments above 2. Disposition: Home 3. Condition on discharge, stable and improved. 4. Diet: regular diet 5. Activities: resume normal activities 6. Follow-Up: 1. PCP Dr. Fleming 2. 7. Medications at the Time of Discharge: Home Medications Medication Instructions Recorded Confirmed Type aspirin 81 mg tablet,delayed 81 mg PO DAILY 09/24/17 09/06/18 History release amlodipine 5 mg tablet 5 mg PO QDAY #90 tab 07/19/18 09/06/18 Rx gabapentin 300 mg capsule 300 mg PO BID #180 cap 07/19/18 09/06/18 Rx levothyroxine 137 mcg tablet 137 mcg PO DAILY #90 tab 07/19/18 09/06/18 Rx lisinopril 40 mg tablet 40 mg PO BID #180 tab 07/19/18 09/06/18 Rx potassium chloride ER 20 mEq 20 meq PO BID #180 tab 07/19/18 09/06/18 Rx tablet,extended release pravastatin 40 mg tablet 40 mg PO QHS #90 tab 07/19/18 09/06/18 Rx furosemide 20 mg tablet 20 mg PO BID #50 tab 08/30/18 09/06/18 Rx Augmentin 875 by mouth twice a day for 3 more days 8. Time, care, counseling and coordination of care for this discharge is greater than 30 minutes. Exam - Vitals Vital Signs: Vital Signs Temperature 98.1 F Temperature Source Temporal Artery Scan Pulse Rate [Pulse Oximeter] 73 Pulse Rate 79 Respiratory Rate 20 Blood Pressure [Left Arm] 114/62 Blood Pressure [Right Arm] 122/58 Blood Pressure 128/60 Pulse Ox 94 Oxygen Flow Rate 1 Oxygen Delivery Method Room Air Height 5 ft 9 in Weight 247 lb 12.8 oz
== END 2018-09-11 11:53 | disposition home or self-care (01) | DRG 470 ==
LOC: OPS 09-07 08:56 → MED/SURG 09-07 16:27
PROVIDERS: ADMIT Orthopaedic Surgery; ATTEND Orthopaedic Surgery